=== PATIENT | male | born 1950 | race Caucasian/White ===

== ENCOUNTER → 2017-01-06 | Day surgery (SDC) | payer MEDICARE ==
[2017-01-02 09:50] VITALS: BMI 32.8
[~2017-01-06] MED LIST: ISOPROTERENOL 250 MCG/1.25 ML SYR IV ONE; LACTATED RINGERS 1,000 ML IV SCH; METOPROLOL TARTRATE 5 MG/5 ML VIAL IVP ONE; METOPROLOL TARTRATE 50 MG TAB PO STA; MIDAZOLAM 2 MG/2 ML VIAL ONE; SODIUM CHLORIDE 0.9% 1,000 ML IV SCH; fentaNYL (PF) 50 MCG/ML 2 ML AMP ONE
[2017-01-06 07:21] VITALS: RESP 18; TEMP 98
--- NOTE | 2017-01-06 10:08 | P.PCN ---
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 Delay detection was account of stability which correlates with his variation in cycle length. First burst of antitachycardia pacing successfully terminated VT Programming changes made 1. VT detection intervals reduced since he is presyncopal 2. VT rate reduced to 162 beats a minute 3. Antitachycardia pacing parameters changed 4. VF detection intervals reduced, since he is presyncopal 5. Stability criteria turned off since this was the reason for delay in detection Plan Increase metoprolol to total of 400 mg daily in divided doses May consider reducing lisinopril in the future if his blood pressure is low Postoperative Diagnosis: Procedure(s) Performed: Implants: Condition: stable Indications for Procedure: Operative Findings: Description of Procedure:
[2017-01-06 13:38] VITALS: BP 116/68; PULSE 92
== END ==
LOC: CATHEP 06:49
PROVIDERS: ATTEND Internal Medicine Clinical Cardiac Electrophysiology
DX: I42.8 Other cardiomyopathies (principal); Z45.02 Encounter for adjustment and management of automatic implantable cardiac defibrillator; I44.7 Left bundle-branch block, unspecified; I47.1 Supraventricular tachycardia; R55 Syncope and collapse; I10 Essential (primary) hypertension; E78.5 Hyperlipidemia, unspecified; J44.9 Chronic obstructive pulmonary disease, unspecified; Z87.891 Personal history of nicotine dependence; Z79.82 Long term (current) use of aspirin; Z79.51 Long term (current) use of inhaled steroids; Z79.899 Other long term (current) drug therapy
CPT/HCPCS: 93642; J2250; J3010

== ENCOUNTER 2017-01-24 10:11 | Day surgery (SDC) | payer MEDICARE ==
[2017-01-20 15:35] VITALS: BMI 32.1
[~2017-01-24 10:11] MED LIST changes: -ISOPROTERENOL 250 MCG/1.25 ML SYR IV ONE; -METOPROLOL TARTRATE 5 MG/5 ML VIAL IVP ONE; -METOPROLOL TARTRATE 50 MG TAB PO STA; -MIDAZOLAM 2 MG/2 ML VIAL ONE; -SODIUM CHLORIDE 0.9% 1,000 ML IV SCH; -fentaNYL (PF) 50 MCG/ML 2 ML AMP ONE
[2017-01-24] MEDS ORDERED: LIDOCAINE 1% 20 ML VIAL (10MG/ML) FOR IV START INTRADERMA ONE (10:25)
[2017-01-24 10:45] VITALS: RESP 16; TEMP 97
[2017-01-24] MEDS ORDERED: PROPOFOL 10 MG/ML 20 ML VIAL IV ONE (10:59)
[2017-01-24] MEDS ORDERED: GLYCOPYRROLATE 0.2 MG/ML 2 ML VIAL ONE (10:59)
[2017-01-24] MEDS ORDERED: LIDOCAINE 1% INJ 10MG/ML (20 ML MDV) ONE (10:59)
--- NOTE | 2017-01-24 12:14 | P.PCN ---
Date of Procedure: 01/24/17 Preoperative Diagnosis: Postoperative Diagnosis: Procedure(s) Performed: Procedure: Colonoscopy and polypectomy. Preoperative diagnosis: Blood in the stools. Postoperative diagnosis: 1. Distal sigmoid polyp snared but no large polyps or cancer. 2. Mild sigmoid diverticulosis with no evidence of acute diverticulitis , strictures or bleeding. 3. Low-grade internal hemorrhoids without bleeding at the time of this exam. Preparation: HalfLytely prep. Sedation: Was provided by anesthesia. Brief clinical history: The patient is a 66-year-old male with history of polyps and family history of colon cancer who I have seen in the office regarding finding of blood in his stools. The patient denied any abdominal symptoms or overt bleeding or any upper GI complaints. His last colonoscopy was around 4 years ago. Procedure: With the patient on his left lateral decubitus position and after informed consent and adequate sedation, the perianal area was inspected and it did not show any fissures or fistulas. There were no masses felt on digital rectal examination. The Olympus CFQ 160L video colonoscope was then inserted in the rectum and the usual fashion and advanced to the cecum. There was a 1- 1.5 cm polyp in the distal sigmoid which I snared and retrieved by suction in 2 pieces. In addition, there were few small scattered diverticular orifices seen in the sigmoid with no evidence of acute diverticulitis or strictures. Otherwise, the mucosa appeared healthy. No large polyps or tumors were seen or any evidence of bleeding. I retroflexed the endoscope in the rectum before the endoscope was withdrawn. Low-grade internal hemorrhoids were noted but there was no evidence of bleeding. The patient tolerated the procedure well. Plan: The patient was reassured. In the absence of upper GI complaints or anemia, I did not schedule an upper endoscopy at this time and this can be kept as a contingency, for further workup of his Hemoccult positive stools, based on his course. For further screening for neoplasia, I would recommend repeat colonoscopy in 5 years. He will follow up with you as planned. Implants: Indications for Procedure: Operative Findings: Description of Procedure:
[2017-01-24 14:12] VITALS: BP 124/78; PULSE 103
== END 2017-01-24 12:05 | disposition home or self-care (01) ==
LOC: ORWHC2ENDO 10:11
DX: D12.5 Benign neoplasm of sigmoid colon (principal); K57.30 Diverticulosis of large intestine without perforation or abscess without bleeding; K64.8 Other hemorrhoids; Z87.19 Personal history of other diseases of the digestive system; Z86.010 Personal history of colon polyps; Z80.0 Family history of malignant neoplasm of digestive organs; I48.91 Unspecified atrial fibrillation; I11.0 Hypertensive heart disease with heart failure; I50.9 Heart failure, unspecified; E78.5 Hyperlipidemia, unspecified; J44.9 Chronic obstructive pulmonary disease, unspecified; F32.9 Major depressive disorder, single episode, unspecified; Z95.810 Presence of automatic (implantable) cardiac defibrillator; Z79.899 Other long term (current) drug therapy; Z79.51 Long term (current) use of inhaled steroids; Z91.048 Other nonmedicinal substance allergy status
CPT/HCPCS: 88305; 45385; J2001; J2704

== ENCOUNTER 2017-12-04 09:45 | Day surgery (SDC) | payer MEDICARE ==
[2017-11-28 12:42] VITALS: BMI 33.6
[~2017-12-04 09:45] MED LIST changes: -LACTATED RINGERS 1,000 ML IV SCH; +LIDOCAINE 1% 20 ML VIAL (10MG/ML) FOR IV START INTRADERMA PRN; +MIDAZOLAM 2 MG/2 ML VIAL IV PRN; +ceFAZolin 1,000 MG in SODIUM CHLORIDE 0.9% IRRIGATIO 250 ML IRRIGATION ONE; +ceFAZolin IN SWFI 2 GM/20 ML SYRINGE IVP ONE
[2017-12-04] MEDS: SODIUM CHLORIDE 0.9% 1,000 ML IV SCH ×4 (10:35→22:24)
[2017-12-04] MEDS ORDERED: MIDAZOLAM 2 MG/2 ML VIAL ONE (12:22)
[2017-12-04] MEDS ORDERED: PROPOFOL 10 MG/ML 20 ML VIAL IV ONE (12:22)
[2017-12-04] MEDS ORDERED: fentaNYL (PF) 50 MCG/ML 2 ML AMP ONE (12:22)
[2017-12-04] MEDS ORDERED: LIDOCAINE 1% INJ 10MG/ML (20 ML MDV) ONE ×2 (12:45)
[2017-12-04] MEDS ORDERED: LIDOCAINE 1% INJ 10MG/ML (20 ML MDV) SQ ONE (13:05)
[2017-12-04] MEDS ORDERED: HYDROcodone/APAP 5-325MG 1 EACH TAB PO PRN (13:40)
[2017-12-04] MEDS ORDERED: ACETAMINOPHEN TAB 325 MG TAB PO PRN (13:40)
[2017-12-04] MEDS ORDERED: ACETAMINOPHEN IV (For NPO) 1,000 MG in EMPTY BAG 1 BAG IVPB ONE (13:40)
[2017-12-04] MEDS: LACTATED RINGERS 1,000 ML IV SCH (14:50)
--- NOTE | 2017-12-04 15:47 | CE ---
CARDIAC ELECTROPHYSIOLOGY REPORT Kj Mcdonald is a 66-year-old male patient who has nonischemic cardiomyopathy, normal coronary arteries, severe LV dysfunction ejection fraction less than 30 to 35%, status post Bi V ICD, history of ventricular tachycardia and fast ventricular tachycardia requiring ICD therapies and shocks on an antiarrhythmic drug therapy for suppression as well as paroxysmal atrial fibrillation on anticoagulation, congestive heart failure class 2-3, stable; LV systolic dysfunction, whose generator is at EDITH. He underwent a Bi V ICD generator change. Patient was brought to the EP lab in a fasting state. Written informed consent was obtained prior to the procedure. The left shoulder area was prepped and draped as per protocol. 1% lidocaine used for local anesthesia. A 4 cm incision was made directly over the previous surgical site and carried down to the level of the generator. The generator was explanted. Partial capsulectomy was performed. The old generator was removed. The new generator was implanted. Leads were interrogated and then the device was tested under anesthesia. The old generator was a Yunait model number D 314 DRG Protecta XT TELEPHONE CLAIMS REPRESENTATIVE. The new generator implanted was a Viva XT DF 1, model number [id number], serial number [id number]. DFT testing was performed. Shock and T-wave protocol was used to induce ventricular fibrillation. This was adequately and appropriately detected at least sensitivity with 1 dropout and successfully internally defibrillated with a 20 joule shock. Charge time 4.3 seconds. Shocking impedance 83 ohms. No post shock noise. The device was then programmed in two zones of therapy to VT and VF zones. VT zone 176 beats per minute. VF zone 214 beats per minute. Appropriate antitachycardia pacing cardioversion defibrillation programmed accordingly. Bi V pacing was programmed with LV RV offset of 20 milliseconds. Sync LV pacing was not accomplished on account of the interference with PVCs. MMODL / IJN: [id number] /
[2017-12-04] MEDS ORDERED: ATORVASTATIN 10 MG TAB PO SCH (17:30)
[2017-12-04] MEDS: ceFAZolin IN SWFI 2 GM/20 ML SYRINGE IVP SCH (18:23)
[2017-12-04] MEDS: MEXILETINE 150 MG CAP PO SCH ×2 (18:26→20:16)
[2017-12-04] MEDS: METOPROLOL TARTRATE 50 MG TAB PO SCH (20:16)
[2017-12-04] MEDS: LISINOPRIL 20 MG TAB PO SCH (20:16)
[2017-12-05] MEDS: ceFAZolin IN SWFI 2 GM/20 ML SYRINGE IVP SCH ×3 (01:01→12:00)
[2017-12-05 03:53] VITALS: RESP 18
[2017-12-05] MEDS: SODIUM CHLORIDE 0.9% 1,000 ML IV SCH ×3 (04:02→04:06)
[2017-12-05] MEDS: LACTATED RINGERS 1,000 ML IV SCH (04:06)
[2017-12-05] MEDS: MEXILETINE 150 MG CAP PO SCH (06:19)
[2017-12-05] MEDS: LISINOPRIL 20 MG TAB PO SCH (08:27)
[2017-12-05] MEDS: METOPROLOL TARTRATE 50 MG TAB PO SCH (08:27)
[2017-12-05] MEDS ORDERED: RIVAROXABAN 20 MG TAB PO SCH (09:00)
[2017-12-05 11:49] VITALS: BP 122/77; PULSE 69; TEMP 97.8
[2017-12-05] MEDS ORDERED: FUROSEMIDE 40 MG TAB PO SCH (12:00)
[2017-12-05] MEDS ORDERED: SPIRONOLACTONE 25 MG TAB PO SCH (12:00)
--- NOTE | 2017-12-05 20:20 | DS ---
DISCHARGE SUMMARY 66-year-old male patient who underwent a biventricular ICD generator change yesterday without any acute complications. He is doing well this morning. His ICD site is healed well. There is no hematoma. There is very minimal soakage. Breath sounds are clear. No rhonchi, no crackles. Heart sounds S1, S2 normal. No murmurs, no gallops. No rub. He has frequent PVCs. IMPRESSION: History of nonischemic cardiomyopathy with congestive heart failure status post Bi V ICD and improvement in LV systolic function with Bi V pacing. Baseline EF is 30-35%. Ejection fraction with Bi V pacing is improved to 45%. He is on appropriate drug therapy. He also has history of VT as well as VF requiring ICD shocks and therapies as well as paroxysmal atrial fibrillation and is on anticoagulation. PLAN: Plan is to discharge him today and follow up in the office in 5 days. No changes in medications. MMODL / IJN: [id number] /
== END 2017-12-05 12:54 | disposition home or self-care (01) ==
LOC: CATHEP 09:45 → 3OBS 15:40 → CATHEP 12-05 12:54
PROVIDERS: ATTEND Internal Medicine Clinical Cardiac Electrophysiology
DX: I42.9 Cardiomyopathy, unspecified (principal); I47.2 Ventricular tachycardia; I47.1 Supraventricular tachycardia; I48.0 Paroxysmal atrial fibrillation; I44.7 Left bundle-branch block, unspecified; I50.22 Chronic systolic (congestive) heart failure; I11.0 Hypertensive heart disease with heart failure; E78.5 Hyperlipidemia, unspecified; Z79.82 Long term (current) use of aspirin; Z79.01 Long term (current) use of anticoagulants; Z87.891 Personal history of nicotine dependence; Z79.899 Other long term (current) drug therapy
CPT/HCPCS: 93641; 33264; C1882; J2250; J0690 ×3; J2001; J3010; J0131; J2704

== ENCOUNTER → 2018-08-22 | Outpatient (CLI) | payer MEDICARE ==
[2018-08-22 08:51] LABS: HCT 46.3 % (39.0-53.0); HGB 15.7 gm/dL (13.0-17.5); MCHC 33.9 g/dL (31.0-37.0); MCV 91.4 fL (80.0-100.0); Mean Platelet Volume 7.5; Platelet Count 243 k/uL (150-450); RBC 5.06 m/uL (4.30-5.90); WBC 6.7 k/uL (3.8-10.6)
[2018-08-22 09:13] LABS: Potassium 5.3 mmol/L (3.5-5.1)
== END ==
LOC: LABPAT 07:47
PROVIDERS: ATTEND Internal Medicine Clinical Cardiac Electrophysiology
DX: Z01.812 Encounter for preprocedural laboratory examination (principal); I48.1 Persistent atrial fibrillation
CPT/HCPCS: 36415; 80051; 82565; 82947; 84520; 85027

== ENCOUNTER 2018-08-31 23:22 | Inpatient (IN) | payer MEDICARE ==
[2018-08-31] MEDS ORDERED: SODIUM CHLORIDE 0.9% 1,000 ML IV STA (23:37)
[2018-08-31] MEDS ORDERED: METOPROLOL TARTRATE 5 MG/5 ML VIAL IVP STA (23:37)
[2018-08-31] MEDS ORDERED: NITROGLYCERIN SL TABS 0.4 MG TAB SUBLINGUAL PRN (23:41)
--- NOTE | 2018-08-31 23:48 | ED ---
Chest Pain HPI - General Chief Complaint: Chest Pain Stated Complaint: Chest Pain Time Seen by Provider: 08/31/18 23:33 Source: patient, family, RN notes reviewed Mode of arrival: wheelchair Limitations: no limitations - History of Present Illness Initial Comments: This is a 67-year-old male to the ER for evaluation of shortness of breath and chest pain. Patient has history of heart disease has a pacemaker and defibrillator, patient states he has been elevated. Patient has severe chest pain heaviness on his chest. He is schefuled for ablation this week MD Complaint: chest pain, other (sob) -: hour(s) Onset: during rest Pain Location: substernal, left chest Pain Radiation: LUE Severity: moderate Severity scale (1-10): 6 Quality: tightness, heaviness Consistency: constant Improves With: nothing Worsens With: nothing Anginal Symptoms: diaphoresis, dyspnea Other Symptoms: palpitations Treatments Prior to Arrival: none - Related Data Home Medications Medication Instructions Recorded Confirmed Furosemide 40 mg PO DAILY@1200 03/17/14 09/01/18 Lisinopril 20 mg PO DAILY 03/17/14 09/01/18 Lovastatin 20 mg PO AC-SUPPER 03/17/14 09/01/18 Spironolactone 25 mg PO DAILY@1200 03/17/14 09/01/18 Cholecalciferol [Vitamin D3] 1,000 unit PO TID 02/17/16 09/01/18 Mexiletine [Mexitil] 150 mg PO TID@0630,1430,2200 02/17/16 09/01/18 buPROPion HCL [Wellbutrin XL] 300 mg PO DAILY@0900 02/17/16 09/01/18 clonazePAM [Clonazepam] 0.5 mg PO BID@0900,2100 02/17/16 09/01/18 Rivaroxaban [Xarelto] 20 mg PO DAILY 11/28/17 09/01/18 Albuterol Sulfate [Proair Hfa] 90 mcg INHALATION QID PRN 09/01/18 09/01/18 Budesonide-Formot 160-4.5 Mcg 2 puff INHALATION BID 09/01/18 09/01/18 [Symbicort 160-4.5 Mcg Inhaler] Metoprolol Succinate [Toprol Xl] 100 mg PO BID 09/01/18 09/01/18 metroNIDAZOLE 0.75% CREAM 0.758 applic TOPICAL BID 09/01/18 09/01/18 [Metrocream] Previous Rx's Medication Instructions Recorded Metoprolol Tartrate [Lopressor] 200 mg PO BID #0 01/06/17 Allergies Allergy/AdvReac Type Severity Reaction Status Date / Time adhesive Allergy Rash/Hives Verified 08/31/18 23:28 Review of Systems ROS Statement: Those systems with pertinent positive or pertinent negative responses have been documented in the HPI. ROS Other: All systems not noted in ROS Statement are negative. EKG Findings - EKG Comments: EKG Findings:: EKG shows paced rhythm rate of 89, QRS 152, QTc 515 Past Medical History Past Medical History: Atrial Fibrillation, Chest Pain / Angina, Heart Failure, Hyperlipidemia, Hypertension, Respiratory Disorder Additional Past Medical History / Comment(s): EMPHYSEMA. SEE DR TONG'S H&P History of Any Multi-Drug Resistant Organisms: None Reported Past Surgical History: AICD, Cardiac Ablation, Tonsillectomy Additional Past Surgical History / Comment(s): Cardiac Ablation x 3; Fx wrist repair; colonoscopy Past Anesthesia/Blood Transfusion Reactions: No Reported Reaction Type of Cardiac Device: AICD Device Placement Date:: 06/18/2012 Past Psychological History: Anxiety Smoking Status: Unknown if ever smoked Past Alcohol Use History: None Reported Past Drug Use History: None Reported - Past Family History Father Family Medical History: Cancer Additional Family Medical History / Comment(s): Colon CA Mother Family Medical History: Cancer Additional Family Medical History / Comment(s): Colon CA General Exam Limitations: no limitations General appearance: alert, in no apparent distress, anxious Head exam: Present: atraumatic, normocephalic, normal inspection Eye exam: Present: normal appearance, PERRL, EOMI. Absent: scleral icterus, conjunctival injection, periorbital swelling ENT exam: Present: normal exam, mucous membranes moist Neck exam: Present: normal inspection. Absent: tenderness, meningismus, lymphadenopathy Respiratory exam: Present: respiratory distress, accessory muscle use, decreased breath sounds, prolonged expiratory. Absent: wheezes, rales, rhonchi, stridor Cardiovascular Exam: Present: tachycardia, irregular rhythm, normal heart sounds. Absent: systolic murmur, diastolic murmur, rubs, gallop, clicks GI/Abdominal exam: Present: soft, normal bowel sounds. Absent: distended, tenderness, guarding, rebound, rigid Extremities exam: Present: normal inspection, full ROM, normal capillary refill. Absent: tenderness, pedal edema, joint swelling, calf tenderness Back exam: Present: normal inspection Neurological exam: Present: alert, oriented X3, CN II-XII intact Psychiatric exam: Present: normal affect, normal mood Skin exam: Present: warm, dry, intact, normal color. Absent: rash Course Vital Signs 08/31/18 08/31/18 23:26 23:50 Temperature 97.6 F Pulse Rate 108 H 125 H Respiratory 20 22 Rate Blood Pressure 108/83 119/88 O2 Sat by Pulse 95 97 Oximetry - Reevaluation(s) Reevaluation #1: 08/31/18 23:45 medical record is reviewed Reevaluation #2: 08/31/18 23:45 metoprolol improves heart rate Chest Pain MDM - MDM 67 male to the ED w chest pain, in afib rvr w paced rhythm, EKG difficult to assess secondary to above, patient is anticoagulated, will admit for cardiolog evaluation and treatment, telemetry, monitoring of cardiopulmonary status Critical Care Time Critical Care Time: Yes Total Critical Care Time: 31 Disposition Clinical Impression: Unstable angina, Chest pain, Atrial fibrillation with RVR Disposition: ADMITTED IP TO THIS HOSP Condition: Fair Is patient prescribed a controlled substance at d/c from ED?: No Referrals: Alvin Redd MD [Primary Care Provider] - 1-2 days
[2018-09-01 00:01] LABS: Basophils # (A) 0.1 k/uL (0-0.2); Basophils % (A) 1 %; Eosinophils # (A) 0.4 k/uL (0-0.7); Eosinophils % (A) 5 %; HCT 47.8 % (39.0-53.0); HGB 15.7 gm/dL (13.0-17.5); Lymphocytes # (A) 2.1 k/uL (1.0-4.8); Lymphocytes % (A) 27 %; MCH 30.4 pg (25.0-35.0); MCHC 32.8 g/dL (31.0-37.0); MCV 92.6 fL (80.0-100.0); Mean Platelet Volume 7.3; Monocytes # (A) 0.5 k/uL (0-1.0); Monocytes % (A) 6 %; Neutrophils # (A) 4.4 k/uL (1.3-7.7); Neutrophils % (A) 58 %; Platelet Count 229 k/uL (150-450); RBC 5.16 m/uL (4.30-5.90); RDW 12.9 % (11.5-15.5); WBC 7.6 k/uL (3.8-10.6)
[2018-09-01 00:07] LABS: INR 1.3 (<1.2); Partial Thromboplastin Time 30.7 sec (22.0-30.0)
[2018-09-01 00:13] LABS: ALT 41 U/L (21-72); AST 31 U/L (17-59); Albumin 4.2 g/dL (3.5-5.0); Alkaline Phosphatase 92 U/L (38-126); Anion Gap 11 mmol/L; Blood Urea Nitrogen 17 mg/dL (9-20); Calcium 9.5 mg/dL (8.4-10.2); Carbon Dioxide 23 mmol/L (22-30); Chloride 105 mmol/L (98-107); Glucose 164 mg/dL (74-99); Magnesium 2.1 mg/dL (1.6-2.3); Potassium 4.3 mmol/L (3.5-5.1); Sodium 139 mmol/L (137-145); Total Bilirubin 0.3 mg/dL (0.2-1.3); Total Protein 6.7 g/dL (6.3-8.2)
--- NOTE | 2018-09-01 00:17 | XR ---
EXAM: XR Chest, 2 Views CLINICAL HISTORY: ITS.REASON XR Reason: Chest Pain TECHNIQUE: Frontal and lateral views of the chest. COMPARISON: Chest radiographs 07/18/2016. FINDINGS: Lungs: Unremarkable. No consolidation. Pleural space: Unremarkable. No pneumothorax. Heart: Cardiomegaly. Mediastinum: Unremarkable. Bones/joints: Degenerative changes seen throughout the thoracic spine. Tubes, lines and devices: Cardiac pacing device. IMPRESSION: No acute cardiopulmonary abnormality.
[2018-09-01] MEDS ORDERED: METOPROLOL TARTRATE 5 MG/5 ML VIAL IVP STA (00:43)
[2018-09-01] MEDS ORDERED: MORPHINE SULFATE 4 MG/ML SYRINGE IVP PRN (01:00)
[2018-09-01 01:21] VITALS: BMI 34.4
[2018-09-01 05:14] VITALS: RESP 18
[2018-09-01] MEDS ORDERED: METOPROLOL TARTRATE 50 MG TAB PO SCH ×3 (06:00→09:00)
[2018-09-01 06:55] LABS: Cholesterol 129 mg/dL (<200); HDL Cholesterol 34 mg/dL (40-60); LDL Cholesterol,Calculated 78 mg/dL (0-99); Triglycerides 84 mg/dL (<150)
[2018-09-01] MEDS ORDERED: ASPIRIN 325 MG TAB PO SCH (09:00)
[2018-09-01] MEDS ORDERED: METOPROLOL SUCCINATE (ER) 100 MG TAB.ER.24H PO SCH ×3 (09:00→21:00)
[2018-09-01] MEDS ORDERED: RIVAROXABAN 20 MG TAB PO SCH (09:30)
--- NOTE | 2018-09-01 09:30 | CONS ---
CONSULTATION CHIEF COMPLAINT: Chest pain. HISTORY OF PRESENT ILLNESS: Mr. Mcdonald is a 67-year-old gentleman with history of nonischemic cardiomyopathy, paroxysmal atrial fibrillation, congestive heart failure status post Bi V AICD, who presented to hospital complaining of chest pain. He describes as a sharp precordial pain, mild intensity, came on at rest, unrelated to exertion and associated with diaphoresis without definite radiation to neck, arm or back. He is admitted with these symptoms. His chest pain he stated got worse when he took a deep breath in and subsequently he became pain free. At the time of my evaluation this morning, he is chest pain-free, hemodynamically stable and is ambulating without any problems. The patient is on Xarelto because of paroxysmal atrial fibrillation. PAST MEDICAL HISTORY: Significant for nonischemic cardiomyopathy, AICD, paroxysmal atrial fibrillation. MEDICATIONS: At home included Toprol-XL 200 daily, ProAir, Symbicort, clonazepam, Wellbutrin, spironolactone, Xarelto, mexiletine, lovastatin, lisinopril, Lasix. ALLERGIES: ADHESIVE TAPE. FAMILY HISTORY: Negative for premature coronary artery disease. SOCIAL HISTORY: Negative for smoking, EtOH abuse, or drug abuse. REVIEW OF SYSTEMS: HEENT is unremarkable. Cardiac as described above. Respiratory negative. GI negative. Genitourinary: Negative. Allergy none. Skin negative. Musculoskeletal negative. Endocrine negative. DERM: Negative. Constitutional negative. Oncological negative. Rest of the system review is not relevant. EXAM: Patient is comfortable at rest. Vital signs are stable. There is no jugular venous distention. Carotid upstroke is normal. There is no bruit. Chest exam reveals diminished air entry at the bases. I do not hear any crackles or rhonchi. Heart exam reveals first and second heart sounds. No gallop. No murmur. No rub. Abdomen is soft, nontender. Exam of extremities did not reveal any edema. Peripheral pulses are felt. CARPET JOURNEYMAN exam did not reveal focal neurological deficits. LABS: Show a hemoglobin of 15.7, platelet count is 229. Potassium is 4.3, creatinine is 0.9. LDL cholesterol is 78. Two sets of troponins are negative. EKG shows atrial fibrillation with nonspecific ST-T wave changes. Chest x-ray is unremarkable. ASSESSMENT: 1. Precordial chest pain. 2. Nonischemic cardiomyopathy status post Bi V AICD. 3. Paroxysmal atrial fibrillation. 4. Hypertension. 5. Dyslipidemia. PLAN: Patient is stable. The patient is chest pain-free. His chest discomfort sounds sharp atypical. He states that he had a negative stress test within the last several months and has had prior angiograms that are negative. I do not have any of these records. Myocardial infarction is ruled out. There is no concern for pulmonary embolism. The patient is already adequately anticoagulated. We will ambulate him, see how he does. If he is doing well, he can go home. The patient is actually awaiting an atrial fibrillation ablation by Dr. See scheduled on and we will probably keep the appointment. MMODL / IJN: [id number] /
--- NOTE | 2018-09-01 13:14 | ECHOF ---
Referral Reason:afib MEASUREMENTS -------- HEIGHT: 182.9 cm WEIGHT: 107.0 kg BP: IVSd: 1.4 cm (0.6 - 1.1) LVIDd: 4.5 cm (3.9 - 5.3) LVPWd: 1.6 cm (0.6 - 1.1) IVSs: 1.8 cm LVIDs: 3.2 cm LVPWs: 2.2 cm Ao Diam: 3.5 cm (2.0 - 3.7) AV Cusp: 2.6 cm (1.5 - 2.6) LA Diam: 4.1 cm (2.7 - 3.8) RAP: 5.00 mmHg RVSP: 10.33 mmHg FINDINGS -------- Atrial fibrillation. This was a technically difficult study with suboptimal views. The left ventricular size is normal. There is moderate concentric left ventricular hypertrophy. O verall left ventricular systolic function is moderately impaired with, an EF between 35 - 40 %. The right ventricle is normal in size. The left atrium is mildly dilated. The right atrial size is normal. 5.0mg of Lumason was utilized for enhancement of images The aortic valve is trileaflet and appears structurally normal. There is trace mitral regurgitation. Trace tricuspid regurgitation present. The right ventricular systolic pressure, as measured by Dopp ler, is 10.33mmHg. There is no pulmonic regurgitation present. The aortic root size is normal. IVC Not well visulized. There is no pericardial effusion. CONCLUSIONS -------- 1. Atrial fibrillation. 2. This was a technically difficult study with suboptimal views. 3. The left ventricular size is normal. 4. There is moderate concentric left ventricular hypertrophy. 5. The right ventricle is normal in size. 6. The left atrium is mildly dilated. 7. The right atrial size is normal. 8. 5.0mg of Lumason was utilized for enhancement of images 9. The aortic valve is trileaflet and appears structurally normal. 10. There is trace mitral regurgitation. 11. Trace tricuspid regurgitation present. 12. The right ventricular systolic pressure, as measured by Doppler, is 10.33mmHg. 13. There is no pulmonic regurgitation present. 14. The aortic root size is normal. 15. IVC Not well visulized. 16. There is no pericardial effusion. DOWEL INSERTING MACHINE OPERATOR: Mecca Farmer RDCS
[2018-09-01] MEDS ORDERED: MEXILETINE 150 MG CAP PO SCH (14:30)
[2018-09-01 15:27] VITALS: BP 111/72; PULSE 71; TEMP 98.1
--- NOTE | 2018-09-01 19:58 | DS ---
DISCHARGE SUMMARY HISTORY PHYSICAL AND DISCHARGE SUMMARY: DATE OF ADMISSION: 08/31/2018 DATE OF DISCHARGE: 09/01/2018 PRESENTING COMPLAINT: Chest pain. HISTORY OF PRESENTING COMPLAINT: This is a very pleasant 67 -year-old patient of Dr. Ramsay, follows with Cardiology, Dr. See. Chronic stable medical conditions include atrial fibrillation, congestive heart failure, hypertension, hyperlipidemia, emphysema, has an AICD. Yesterday developed pressure across the upper chest, lasted for 1 hour. Did not radiate to the neck or arm. There was no shortness of breath. No dizziness. No lightheadedness. Though did break out in a sweat. Symptoms then subsided. The patient admitted for the same. Patient is pending an ablation by Dr. See in the next 4 days. The patient was seen by Dr. Ramos from Cardiology who had the patient up and walk up and down the hallway a few times. He did that without any reproduction of symptoms. Per his notes, patient has had a stress test in the past that was negative. The patient is currently feeling rather comfortable, very keen to go home. REVIEW OF SYSTEMS: CONSTITUTIONAL: None. HEENT: None. RESPIRATORY: None. CARDIOVASCULAR: As above. GASTROINTESTINAL: None. GENITOURINARY: None. MUSCULOSKELETAL: None. DERMATOLOGICAL: None. HEMATOLOGY: None. LYMPHATICS: none. PSYCHIATRY none. NEUROLOGICAL: None. PAST MEDICAL HISTORY: Of atrial fibrillation, congestive heart failure, EF not known, hyperlipidemia, hypertension, emphysema. PAST SURGICAL HISTORY: AICD, tonsillectomy, cardiac ablation x3, fractured wrist repair, AICD in 2013. PSYCH HISTORY: Anxiety. SOCIAL HISTORY: Smoked a pack a day for close to 40 years, stopped in 1997, . FAMILY HISTORY: Colon cancer. HOME MEDICATIONS: 1. Metro cream topical b.i.d. 2. Clonazepam 0.5 mg p.o. b.i.d. 3. Wellbutrin XL 300 mg p.o. daily. 4. Aldactone 25 mg p.o. daily. 5. Xarelto 20 mg p.o. daily. 6. Mexiletine 150 mg p.o. t.i.d. 7. Toprol-XL 100 mg b.i.d., 200 mg p.o. daily. 8. Lovastatin 20 mg with supper. 9. Lisinopril 20 mg p.o. daily. 10.Lasix 40 mg p.o. daily. 11.Vitamin D3 1000 units p.o. t.i.d. 12.Symbicort 160/4.5, 2 puffs b.i.d. 13.ProAir 90 mcg q.i.d. p.r.n. ALLERGIES: ADHESIVE TAPE. PHYSICAL EXAMINATION: VITAL SIGNS: Temperature 98.1, pulse 71, respiratory 18, blood pressure 101/72, pulse ox 96% on room air. GENERAL APPEARANCE: Average built, , sitting up comfortable. EYES: Pupils equal. Conjunctivae normal. HEENT: External appearance of nose and ears normal. Oral cavity normal. NECK: JVD not raised. Mass not palpable. RESPIRATORY: Effort normal. LUNGS: Diminished breath sounds. CARDIOVASCULAR: Heart sounds irregular. No edema. ABDOMEN: Soft, nontender. Liver and spleen not palpable. LYMPHATICS: No lymph nodes palpable in the neck and axilla. PSYCHIATRY: Alert and oriented times three. Mood and affect normal. NEUROLOGICAL: Pupils equal. Cranial nerves grossly intact. Power and sensation grossly intact. INVESTIGATIONS: White count 6.6, hemoglobin 15.7, platelets 229, potassium 4.3. BUN and creatinine is normal. Troponin times three negative. LDL 78. EKG tracing personally reviewed by me shows paced rhythm. Chest x-ray film personally reviewed by me shows cardiomegaly, prominent pulmonary artery. No obvious infiltrate. ASSESSMENT: 1. Anterior chest wall pain. Seen by Cardiology. Okay to go home. Per Dr. Ramos, the patient has had a stress test in the recent past. The patient is due for ablation. 2. Persistent atrial fibrillation with a AICD in place. 3. Chronic congestive heart failure, EF not known. 4. Essential hypertension. 5. Hyperlipidemia. 6. Emphysema in an ex-smoker. 7. AICD. PLAN: The patient is seen by Dr. Janina Ramos from Cardiology who okayed the patient to go home. Home medications will be continued. Patient due to see Dr. See for ablation this coming . Care was discussed with the patient and . He has been up and about in the hallway with no reproduction of the symptoms. Copy to Dr. Alvin Redd. MMMATILDEL / IJN: [id number] /
== END 2018-09-01 17:52 | disposition home or self-care (01) | DRG 313 ==
LOC: EC 23:22 → 3SCARD 23:41
PROVIDERS: ADMIT Hospitalist; ATTEND Hospitalist
DX: R07.89 Other chest pain (principal); I42.9 Cardiomyopathy, unspecified; I50.9 Heart failure, unspecified; I11.0 Hypertensive heart disease with heart failure; J43.9 Emphysema, unspecified; I48.0 Paroxysmal atrial fibrillation; E78.5 Hyperlipidemia, unspecified; F41.9 Anxiety disorder, unspecified; Z79.01 Long term (current) use of anticoagulants; Z79.899 Other long term (current) drug therapy; Z79.51 Long term (current) use of inhaled steroids; Z87.891 Personal history of nicotine dependence; Z95.810 Presence of automatic (implantable) cardiac defibrillator; Z91.048 Other nonmedicinal substance allergy status; Z80.0 Family history of malignant neoplasm of digestive organs
CPT/HCPCS: 36415; 71046; 80053; 80061; 83735; 83880; 84100; 84484; 85025; 85610; 85730; 93005; 93306; 94760; 96361; 96374; 96376; 99291

== ENCOUNTER → 2018-09-06 | Day surgery (SDC) | payer MEDICARE ==
[2018-09-05 08:35] VITALS: BMI 33.0
[~2018-09-06] MED LIST changes: -LIDOCAINE 1% 20 ML VIAL (10MG/ML) FOR IV START INTRADERMA PRN; -MIDAZOLAM 2 MG/2 ML VIAL IV PRN; +SODIUM CHLORIDE 0.9% 1,000 ML IV SCH; -ceFAZolin 1,000 MG in SODIUM CHLORIDE 0.9% IRRIGATIO 250 ML IRRIGATION ONE; -ceFAZolin IN SWFI 2 GM/20 ML SYRINGE IVP ONE
== END ==
LOC: CATHEP 06:20
PROVIDERS: ATTEND Internal Medicine Clinical Cardiac Electrophysiology
DX: Z53.9 Procedure and treatment not carried out, unspecified reason (principal)

== ENCOUNTER → 2018-09-10 | Day surgery (SDC) | payer MEDICARE ==
[2018-09-06 15:33] VITALS: BMI 33.0
[~2018-09-10] MED LIST changes: +LACTATED RINGERS 1,000 ML IV SCH
[2018-09-10 15:16] VITALS: BP 155/94; PULSE 123; RESP 18; TEMP 96.2
== END ==
LOC: CATHEP 14:19
PROVIDERS: ATTEND Internal Medicine Clinical Cardiac Electrophysiology
DX: I48.91 Unspecified atrial fibrillation (principal); Z53.9 Procedure and treatment not carried out, unspecified reason

== ENCOUNTER → 2018-10-03 | Outpatient (CLI) | payer MEDICARE ==
[2018-10-03 09:08] LABS: HCT 50.7 % (39.0-53.0); MCH 29.2 pg (25.0-35.0); MCHC 31.6 g/dL (31.0-37.0); MCV 92.4 fL (80.0-100.0); Mean Platelet Volume 7.9; Platelet Count 220 k/uL (150-450); RBC 5.48 m/uL (4.30-5.90); RDW 13.7 % (11.5-15.5); WBC 6.2 k/uL (3.8-10.6)
[2018-10-03 09:23] LABS: Potassium 5.5 mmol/L (3.5-5.1)
== END | disposition home or self-care (01) ==
LOC: LABPAT 08:06
PROVIDERS: ATTEND Internal Medicine Clinical Cardiac Electrophysiology
DX: Z01.812 Encounter for preprocedural laboratory examination (principal); I48.1 Persistent atrial fibrillation; I42.8 Other cardiomyopathies
CPT/HCPCS: 80051; 82565; 82947; 84520; 85027

== ENCOUNTER 2018-10-15 11:03 | Day surgery (SDC) | payer MEDICARE ==
[2018-10-11 13:56] VITALS: BMI 32.1
[~2018-10-15 11:03] MED LIST changes: -LACTATED RINGERS 1,000 ML IV SCH; +LIDOCAINE 1% 20 ML VIAL (10MG/ML) FOR IV START INTRADERMA PRN; +MIDAZOLAM 2 MG/2 ML VIAL IV PRN; -SODIUM CHLORIDE 0.9% 1,000 ML IV SCH; +fentaNYL (PF) 50 MCG/ML 2 ML AMP IV PRN
[2018-10-15] MEDS ORDERED: ceFAZolin IN SWFI 2 GM/20 ML SYRINGE IVP STA (11:48)
[2018-10-15] MEDS ORDERED: fentaNYL (PF) 50 MCG/ML 2 ML AMP ONE (12:34)
[2018-10-15] MEDS ORDERED: SUCCINYLCHOLINE CHLORIDE 100 MG/5 ML SYR IV ONE (12:34)
[2018-10-15] MEDS ORDERED: PHENYLEPHRINE-0.9% NACL SYG 1 MG/10 ML SYRINGE ONE (12:34)
[2018-10-15] MEDS ORDERED: GLYCOPYRROLATE 0.2 MG/ML 2 ML VIAL ONE (12:34)
[2018-10-15] MEDS ORDERED: FUROSEMIDE 10 MG/ML 2 ML VIAL ONE (12:34)
[2018-10-15] MEDS ORDERED: ePHEDrine SULFATE/0.9% NACL/PF 50 MG/5 ML SYRINGE IV ONE (12:34)
[2018-10-15] MEDS ORDERED: PROPOFOL 10 MG/ML 20 ML VIAL IV ONE (12:34)
[2018-10-15] MEDS ORDERED: SODIUM CHLORIDE 0.9% 1,000 ML IV ONE ×3 (12:34→16:46)
[2018-10-15] MEDS ORDERED: LIDOCAINE 1% INJ 10MG/ML (20 ML MDV) ONE ×2 (12:34→13:15)
[2018-10-15] MEDS ORDERED: PROTAMINE SULFATE 10 MG/ML 5 ML VIAL IV ONE (12:34)
[2018-10-15] MEDS ORDERED: MIDAZOLAM 2 MG/2 ML VIAL ONE (12:34)
[2018-10-15] MEDS ORDERED: ROCURONIUM BROMIDE 10 MG/ML 10 ML VIAL IV ONE (12:34)
[2018-10-15] MEDS ORDERED: NEOSTIGMINE 1 MG/ML 10 ML VIAL ONE (12:34)
[2018-10-15] MEDS ORDERED: HEPARIN SODIUM,PORCINE 10,000 UNIT/ML 1 ML VIAL ONE (12:34)
[2018-10-15] MEDS ORDERED: HEPARIN SOD,PORK IN 0.45% NACL 25,000 UNIT in 0.45% NACL 1 250ML.BAG IV ONE ×2 (13:30)
[2018-10-15] MEDS ORDERED: LIDOCAINE 1% INJ 10MG/ML (20 ML MDV) SQ ONE (13:32)
[2018-10-15] MEDS ORDERED: HEPARIN SODIUM (1,000 UNIT/ML) 1,000 UNIT in SODIUM CHLORIDE 0.9% 1,000 ML IRRIGATION ONE (15:19)
[2018-10-15] MEDS ORDERED: IOPAMIDOL-370 100ML BTL INJ ONE (16:11)
[2018-10-15] MEDS ORDERED: ACETAMINOPHEN TAB 325 MG TAB PO PRN (17:40)
[2018-10-15] MEDS ORDERED: HYDROcodone/APAP 5-325MG 1 EACH TAB PO PRN (17:40)
[2018-10-15] MEDS ORDERED: ALBUTEROL NEBULIZED 2.5 MG/3 ML INHALATION PRN (17:42)
[2018-10-15] MEDS ORDERED: ACETAMINOPHEN IV (For NPO) 1,000 MG in EMPTY BAG 1 BAG IVPB ONE (18:00)
--- NOTE | 2018-10-15 18:01 | P.PCN ---
Preoperative Diagnosis: Diagnosis Atrial fibrillation, symptomatic, refractory to therapy, paroxysmal reaching the VT detection zone Nonischemic cardiomyopathy status post biventricular ICD Result Successful pulmonary vein isolation of all veins using cryo-ablation Complete entrance block in all 4 veins confirmed No evidence for phrenic nerve injury Esophageal deflection YES , left-sided esophagus Procedure details Patient was brought to the EP lab in a fasting state. Written informed consent was obtained prior to the procedure. Procedure performed under general anesthesia After initial muscle relaxant use, muscle relaxants were not given thereafter in order to assess phrenic nerve during procedure. Patient prepped and draped as per protocol Full cryo-set up with standard preparation of the cryoablation tools done. Femoral Venous access obtained on the right and left groins Venous and arterial Sheaths placed. Diagnostic catheters for the high right atrium, phrenic nerve stimulation and pacing, His bundle, RV and coronary sinus placed Intracardiac echo catheter placed. Long sheath placed in the right atrium Left and right transseptal catheterization performed under intracardiac echo guidance. Intravenous heparin with aCT above 300 Later, catheter positioning and balloon positioning in the left atrium, under intracardiac echo guidance Diagnostic EP study with Drug infusion Coronary sinus pacing and recording Baseline measurements Atrial pacing performed from the high right atrium and the coronary sinus RV pacing Sinus cycle length 795 ms, paced, pace MO interval 200 ms, QRS 133 ms Bi V Underlying left bundle branch block once the device was interrogated and reprogrammed for the procedure AH interval 65 ms, HV interval 44 ms Burst stimulation from 4 ms down to 250 ms no atrial fibrillation induced at the end of the procedure Atrial extra stimulation from the left atrium/left atrial appendage after the procedure, 600/240 ms no atrial fibrillation on her off Isuprel High dose Isuprel postprocedure. No atrial tachycardia no atrial fibrillation Transseptal catheterization performed RA pressure 15/6/10 LA pressure 37/1/18 Transseptal catheterization performed with standard sheath. The cryoablation sheath was then placed with an over the wire exchange without any acute complications. All 4 pulmonary veins were isolated in the following sequence: Left superior followed by left inferior followed by right superior followed by right inferior The cryo-ablation balloon was placed at the os of each vein 1.5 mL of IV dye was injected to confirm an occluded vein Goal during cryoablation was to achieve complete occlusion of the pulmonary vein, achieve -30 degrees C at 30 seconds and achieve -40 degrees C at 60 seconds and a time to effect of less than 60-90 seconds, . If not the balloon was repositioned to obtain this result After completion of Cryoblation with durations from 180-240 seconds, entrance block was confirmed with the Attain circular catheter in a roving fashion around the antrum of the pulmonary veins Phrenic nerve pacing was performed from the SVC, right innominate vein area and diaphragm voltage was monitored. Diaphragmatic contractions were also monitored manually for strength of contraction. Parameter goals for each cryo freeze Complete occlusion of the appropriate vein -30 degrees C by 30 seconds -40 degrees C by 60 seconds Minimum between minus 40-55 degrees C Thaw time greater than 10 seconds Balloon visualized by intracardiac echo The esophagus was intubated. Esophageal Temperature monitoring with a CIRCA catheter formed. Esophageal deflection for hypothermia of the esophagus below 30 degrees C Left superior pulmonary vein Complete isolation, entrance block Left inferior pulmonary vein Complete isolation, entrance block Right superior pulmonary vein, during phrenic nerve pacing Complete isolation, entrance block Right inferior pulmonary vein, during phrenic nerve pacing Complete isolation, entrance block At the end of the procedure the Achieve catheter was once again used to check for entrance block Phrenic nerve stimulation was performed to confirm diaphragmatic stimulation the end of the procedure Cine fluoroscopy was performed at the very end of the procedure to confirm movement of both diaphragms with inspiration and expiration At the end of the procedure the patient was extubated Heparin was reversed Venous sheaths were removed and hemostasis assured Procedures performed (PVI - CRYO Ablation) Invasive hemodynamic monitoring while general anesthesia, right femoral arterial line for monitoring and sampling Diagnostic EP study CS pacing and recording Left and right transseptal catheterization Catheter the mapping of the 3D mapping) Intracardiac echocardiography Pulmonary vein isolation with transseptal and comprehensive EPS, [id number] 3-D mapping of the left atrium Left atrial roof line, +[id number] 3-D mapping of the left atrial roof line Left atrial, septal line from the roof down to the right inferior pulmonary vein, +[id number] Drug Infusion +[id number] [facility] ICD interrogation with reprogramming before and after the procedure The for the procedure rate-responsive this turned off atrial therapies turned off AV delay prolonged VT and VF detections turned off At the end of the procedure the device was interrogated Rate-responsive this turned on, DDDR 60 to 1:30 bpm AV delay shortened to 1:30 milliseconds Atrial therapies turned on VT and VF detections turned on
[2018-10-15] MEDS: SODIUM CHLORIDE 0.9% 1,000 ML IV SCH (19:38)
[2018-10-15] MEDS: LACTATED RINGERS 1,000 ML IV SCH (19:38)
[2018-10-15] MEDS ORDERED: RIVAROXABAN 20 MG TAB PO SCH (20:30)
[2018-10-15] MEDS ORDERED: ATORVASTATIN 10 MG TAB PO SCH (20:53)
[2018-10-15] MEDS ORDERED: SPIRONOLACTONE 25 MG TAB PO SCH (21:00)
[2018-10-15] MEDS: SYMBICORT 160-4.5 MCG INHALER INHALATION SCH (21:16)
[2018-10-15] MEDS: clonazePAM 0.5 MG TAB PO SCH (21:25)
[2018-10-15] MEDS: METOPROLOL SUCCINATE (ER) 100 MG TAB.ER.24H PO SCH (21:25)
[2018-10-15] MEDS: MEXILETINE 150 MG CAP PO SCH (21:25)
[2018-10-16] MEDS: SODIUM CHLORIDE 0.9% 1,000 ML IV SCH (03:33)
[2018-10-16] MEDS: clonazePAM 0.5 MG TAB PO SCH (08:36)
[2018-10-16] MEDS: MEXILETINE 150 MG CAP PO SCH (08:37)
[2018-10-16] MEDS ORDERED: METOPROLOL SUCCINATE (ER) 100 MG TAB.ER.24H PO SCH (09:00)
[2018-10-16] MEDS ORDERED: buPROPion SR 100 MG TABLET.ER PO SCH (09:00)
[2018-10-16] MEDS ORDERED: LISINOPRIL 20 MG TAB PO SCH (09:00)
[2018-10-16] MEDS ORDERED: FUROSEMIDE 40 MG TAB PO SCH (09:00)
[2018-10-16] MEDS: SYMBICORT 160-4.5 MCG INHALER INHALATION SCH (09:26)
[2018-10-16] MEDS: METOPROLOL SUCCINATE (ER) 100 MG TAB.ER.24H PO SCH (14:42)
[2018-10-16 16:01] VITALS: BP 115/77; PULSE 47; RESP 16; TEMP 97.2
[2018-10-16] MEDS ORDERED: SPIRONOLACTONE 25 MG TAB PO SCH (17:30)
[2018-10-16] MEDS ORDERED: RIVAROXABAN 20 MG TAB PO SCH (17:30)
[2018-10-16] MEDS ORDERED: ATORVASTATIN 10 MG TAB PO SCH (17:30)
--- NOTE | 2018-10-17 00:47 | DS ---
DISCHARGE SUMMARY Kj Mcdonald is a 67-year-old male patient with a history of nonischemic cardiomyopathy and paroxysmal symptomatic atrial fibrillation that is VT zone of the device despite 300 mg of Toprol-XL. He has failed sotalol and has severe shortness of breath with sotalol. He is brought in for pulmonary vein isolation and linear ablation in the left atrium. Yesterday, he underwent cryoablation of the pulmonary veins followed by linear ablation of the left atrial roof as well as along the septum from the left atrium anteriorly. He is doing well today. He denies any chest discomfort. Yesterday, he had some sore throat. Today his sore throat is a lot better. He has no swallowing issues. No chest pain. No dizziness or lightheadedness. His groins are healing well. PLAN: Continue current medications. Continue cardiomyopathy medications. Continue anticoagulation and discharge home at 5:00 pm as long as he is able to ambulate in the hallways without any issues and we will see him in the office within 1-2 weeks. MMODL / IJN: [id number] /
--- NOTE | 2018-10-17 00:47 | LTR ---
DATE OF SERVICE: 10/16/[address] Vergara: I had the pleasure of seeing Kj Mcdonald in electrophysiology. Kj underwent an atrial fibrillation ablation yesterday with cryoablation of the pulmonary veins and linear ablation of the left atrial roof and the anterior left atrial septum. He tolerated the procedure well without any acute complications. Following that, I could not induce any atrial tachyarrhythmias on and off Isuprel. Hopefully this results in a reduction in his atrial fibrillation burden, especially since his ventricular rates are quite rapid and reach the VT zone of the ICD, despite 300 mg of Toprol-XL. Thank you for entrusting us in the care of this patient. Warm regards, Sincerely, MARIAM / RENETTAN: [id number] /
== END 2018-10-16 17:00 | disposition home or self-care (01) ==
LOC: CATHEP 11:03 → 1SOBS 17:25 → CATHEP 10-16 17:00
PROVIDERS: ATTEND Internal Medicine Clinical Cardiac Electrophysiology
DX: I48.0 Paroxysmal atrial fibrillation (principal); I42.8 Other cardiomyopathies; I11.0 Hypertensive heart disease with heart failure; I50.22 Chronic systolic (congestive) heart failure; Z95.810 Presence of automatic (implantable) cardiac defibrillator; E78.5 Hyperlipidemia, unspecified; Z87.891 Personal history of nicotine dependence; J44.9 Chronic obstructive pulmonary disease, unspecified; Z79.01 Long term (current) use of anticoagulants; Z79.51 Long term (current) use of inhaled steroids; Z79.899 Other long term (current) drug therapy
CPT/HCPCS: 94640; 85347; 93623; 93662; 93613; 93656; 84132; C1769 ×6; C1894 ×2; C1730 ×2; C1759; C1893; C1733; C1766; C1732; J2250; J2720; J1644 ×3; J1940; J2710; J2001; J3010; J2370; J0330; J2704; Q9967; 93609

== ENCOUNTER 2019-03-03 23:03 | Inpatient (IN) | payer MEDICARE ==
[2019-03-03] MEDS ORDERED: ASPIRIN 81 MG PO STA (23:21)
--- NOTE | 2019-03-03 23:23 | ED ---
Chest Pain HPI - General Chief Complaint: Chest Pain Stated Complaint: Chest Pain Time Seen by Provider: 03/03/19 23:21 Source: patient Mode of arrival: ambulatory Limitations: no limitations - History of Present Illness Initial Comments: Kj is a 68-year-old gentleman with a past medical history of nonischemic cardiomyopathy and frequent arrhythmias for which she has an AICD and ventricular demand pacemaker placed. Patient was seen and evaluated in the hospital in [place] on Monday night, at that time he is having chest pressure. His workup was unremarkable he was discharged home to follow up with his fisher we[place] Dr. See in office this week. Patient reports that one hour prior to arrival he began feeling pressure in his chest and difficulty breathing which prompted him to come to the ER. Patient reports he's had like this in the past with his heart is in a funny rhythm. Patient states that he typically does not have symptoms when his heart is in bed rhythms, he states that when he has his pacemaker interrogated he's told that he usually has 30-60 arrhythmia events in a month. Patient states that his cardiac caths of been clean in the past and that his problem is electrical and not plumbing. Patient denies any recent illness, fevers chills nausea or vomiting. He's been completely compliant with all of his home medications including his antiarrhythmics - Related Data Home Medications Medication Instructions Recorded Confirmed Furosemide 40 mg PO DAILY 03/17/14 03/03/19 Lovastatin 20 mg PO AC-SUPPER 03/17/14 03/03/19 Spironolactone 25 mg PO DAILY 03/17/14 03/03/19 Cholecalciferol [Vitamin D3 (25 1,000 unit PO TID 02/17/16 03/03/19 Mcg = 1000 Iu)] Mexiletine [Mexitil] 150 mg PO TID 02/17/16 03/03/19 clonazePAM [Clonazepam] 0.5 mg PO BID 02/17/16 03/03/19 Rivaroxaban [Xarelto] 20 mg PO DAILY 11/28/17 03/03/19 Albuterol Sulfate [Proair Hfa] 1 - 2 mcg INHALATION RT-QID PRN 09/01/18 03/03/19 Budesonide-Formot 160-4.5 Mcg 2 puff INHALATION RT-BID 09/01/18 03/03/19 [Symbicort 160-4.5 Mcg Inhaler] Metoprolol Succinate [Toprol XL] 200 mg PO QAM 09/01/18 03/03/19 Metoprolol Succinate [Toprol Xl] 100 mg PO BID@1200,1900 09/01/18 03/03/19 Docusate [Colace] 100 mg PO BID 10/11/18 03/03/19 Lisinopril [Zestril] 10 mg PO DAILY 03/03/19 03/03/19 buPROPion HCL [Wellbutrin XL] 300 mg PO DAILY 03/03/19 03/03/19 metroNIDAZOLE [Metrogel 1%] 1 applic TOPICAL BID 03/03/19 03/03/19 Allergies Allergy/AdvReac Type Severity Reaction Status Date / Time adhesive Allergy Rash/Hives Verified 03/03/19 23:21 Review of Systems ROS Statement: Those systems with pertinent positive or pertinent negative responses have been documented in the HPI. ROS Other: All systems not noted in ROS Statement are negative. EKG Findings - EKG Comments: EKG Findings:: EKG ordered for evaluation of chest pressure, any social EKG ordered at 2316, rate is 137, rhythm appears to be ventricular tachycardia with demand pace rhythm,. Underlying rhythm difficult to assess on this EKG. Repeat EKG was obtained at 2317, rate is 127 rhythm is ventricularly paced, when this EKG was compared to EKG obtained earlier in this calendar year there is no significant changes in morphology. Past Medical History Past Medical History: Atrial Fibrillation, Chest Pain / Angina, Heart Failure, Hyperlipidemia, Hypertension, Respiratory Disorder, Skin Disorder Additional Past Medical History / Comment(s): EMPHYSEMA, ROSACEA. SEE DR SEE'S H&P. History of Any Multi-Drug Resistant Organisms: None Reported Past Surgical History: AICD, Cardiac Ablation, Tonsillectomy Additional Past Surgical History / Comment(s): Cardiac Ablation x 3, Fx wrist repair, colonoscopy. Past Anesthesia/Blood Transfusion Reactions: No Reported Reaction Type of Cardiac Device: AICD Device Placement Date:: 06/18/2012, 06/2018 Past Psychological History: Anxiety Smoking Status: Former smoker - Past Family History Father Family Medical History: Cancer Additional Family Medical History / Comment(s): prostate,colon Mother Family Medical History: Cancer Additional Family Medical History / Comment(s): Colon CA Sister(s) Family Medical History: Cancer General Exam - General Exam Comments Initial Comments: Physical Exam GENERAL: Patient is well-developed and well-nourished. Diaphoretic appears uncomfortable HENT: Normocephalic, Atraumatic. EYES: PERRL, EOMI PULMONARY: Unlabored respirations. No audible rales rhonchi or wheezing was noted. CARDIOVASCULAR: Irregularly irregular Pacemaker in place in left chest Warm and well perfused extremities ABDOMEN: Soft and nontender with normal bowel sounds. SKIN: Skin is clear with no lesions or rashes and otherwise unremarkable. Diaphoretic : Deferred NEUROLOGIC: Patient is alert and oriented x3. Moving all extremities spontaneously MUSCULOSKELETAL: Normal extremities with adequate strength and full range of motion. No lower extremity swelling or edema. No calf tenderness. PSYCHIATRIC: Normal psychiatric evaluation. Limitations: no limitations Course Vital Signs 03/03/19 03/04/19 03/04/19 23:05 00:19 00:24 Temperature 97.9 F Pulse Rate 128 H 117 H 128 H Respiratory 16 18 18 Rate Blood Pressure 122/95 136/106 121/109 O2 Sat by Pulse 98 98 98 Oximetry 03/04/19 03/04/19 03/04/19 00:29 00:34 02:04 Temperature Pulse Rate 118 H 126 H 123 H Respiratory 18 18 18 Rate Blood Pressure 128/109 122/93 108/79 O2 Sat by Pulse 97 97 96 Oximetry 03/04/19 03/04/19 02:36 02:55 Temperature Pulse Rate 91 96 Respiratory 16 16 Rate Blood Pressure 103/91 121/83 O2 Sat by Pulse 98 98 Oximetry Chest Pain [facility] The patient was seen and evaluated, history is obtained from patient and This is a 68-year-old gentleman with nonischemic cardiomyopathy history of dysrhythmias presenting with chest pressure and EKG concerning for nonsustained V. tach Labs and imaging were ordered Labs no significant electrolyte abnormalities, troponin is negative Patient was given IV push Lopressor as he is on by mouth Lopressor home in is usually manages his arrhythmia as well, patient did not improve with IV Lopressor and a Cardizem drip was initiated Patient heart rate improving significantly with Cardizem infusion, episodes of nonsustained V. tach much less frequent, at this time we'll plan to admit the patient to the hospital for continuous cardiac monitoring and evaluation by cardiology as well as serial troponins. Patient has remained asymptomatic since arrival he has no complaints he is no longer diaphoretic is not short of breath he cannot since the V. tach when it occurs. Critical Care Time Critical Care Time: Yes Total Critical Care Time: 30 Critical Care Time: Critical Care Time Critical care time was exclusive of separately billable procedures and treating other patients and teaching time. Critical care was necessary to treat or prevent imminent or life-threatening deterioration. Given the critical condition in which the patient arrived, the patient was immediately assessed by myself and the nurse, and cardiac monitoring initiated due to the potential for rapid decompensation of the patient's clinical condition. During the course of the patients stay, I spent a considerable amount of time at the bedside performing serial re-evaluations of the patient's hemodynamic and clinical status because of the recognized potential threat to life or limb in this condition. I then had a chance to review not only all of the available current laboratory and radiographic studies obtained today, but I also reviewed old records available to me at the time. Additionally, any ancillary information available including mammography technologist records were reviewed. Sequential vital signs were obtained. Disposition Clinical Impression: Arrhythmia Disposition: ADMITTED IP TO THIS [facility] Condition: Serious Referrals: Alvin Redd MD [Primary Care Provider] - 1-2 days
[2019-03-03 23:44] LABS: Basophils # (A) 0.2 k/uL (0-0.2); Basophils % (A) 2 %; Eosinophils # (A) 0.3 k/uL (0-0.7); Eosinophils % (A) 4 %; HGB 15.4 gm/dL (13.0-17.5); Lymphocytes # (A) 1.9 k/uL (1.0-4.8); Lymphocytes % (A) 26 %; MCH 30.6 pg (25.0-35.0); MCHC 32.8 g/dL (31.0-37.0); MCV 93.3 fL (80.0-100.0); Mean Platelet Volume 7.1; Monocytes # (A) 0.5 k/uL (0-1.0); Monocytes % (A) 7 %; Neutrophils # (A) 4.5 k/uL (1.3-7.7); Neutrophils % (A) 59 %; Platelet Count 239 k/uL (150-450); RBC 5.03 m/uL (4.30-5.90); RDW 13.1 % (11.5-15.5); WBC 7.6 k/uL (3.8-10.6)
[2019-03-03 23:53] LABS: INR 1.3 (<1.2); Partial Thromboplastin Time 28.8 sec (22.0-30.0); Prothrombin Time 13.4 sec (9.0-12.0)
--- NOTE | 2019-03-03 23:53 | XR ---
EXAMINATION TYPE: XR chest 2V DATE OF EXAM: 03/03/2019 COMPARISON: 10/23/2018 HISTORY: Chest pain TECHNIQUE: Frontal and lateral views of the chest are obtained. FINDINGS: Heart is enlarged. There is no heart failure. There is left axillary pacemaker. There are chest leads. Costophrenic angles are clear. Bony thorax is intact. IMPRESSION: Cardiomegaly. No active cardiopulmonary disease. Heart is increased slightly compared to old exam.
[2019-03-03 23:57] LABS: Albumin 4.1 g/dL (3.5-5.0); Calcium 9.7 mg/dL (8.4-10.2); Potassium 4.5 mmol/L (3.5-5.1); Total Bilirubin 0.2 mg/dL (0.2-1.3); Total Protein 6.7 g/dL (6.3-8.2)
[2019-03-04] MEDS: NITROGLYCERIN SL TABS 0.4 MG TAB SUBLINGUAL STA ×3 (00:19→00:28)
[2019-03-04] MEDS: METOPROLOL TARTRATE 5 MG/5 ML VIAL IVP SCH ×7 (00:20→12:09)
[2019-03-04] MEDS ORDERED: FUROSEMIDE 10 MG/ML 4 ML VIAL IV STA ×2 (00:28→15:34)
[2019-03-04] MEDS ORDERED: DILTIAZEM DRIP BOLUS FROM BAG 1 MG SOLN IV ONE (00:55)
[2019-03-04] MEDS ORDERED: DILTIAZEM 125 MG in SODIUM CHLORIDE 0.9% 100 ML IV SCH (01:45)
[2019-03-04] MEDS: SYMBICORT 160-4.5 MCG INHALER INHALATION SCH ×2 (07:36→19:05)
[2019-03-04] MEDS ORDERED: HEPARIN SODIUM,PORCINE 5,000 UNIT/ML 1 ML VIAL SQ SCH (08:00)
[2019-03-04 09:41] LABS: Magnesium 1.9 mg/dL (1.6-2.3)
[2019-03-04] MEDS: clonazePAM 0.5 MG TAB PO SCH ×2 (10:39→23:17)
[2019-03-04] MEDS: DILTIAZEM CD 120 MG CAP.ER.24H PO SCH (10:39)
[2019-03-04] MEDS: SPIRONOLACTONE 25 MG TAB PO SCH (10:39)
[2019-03-04] MEDS: LISINOPRIL 10 MG TAB PO SCH (10:40)
[2019-03-04] MEDS: METOPROLOL SUCCINATE (ER) 100 MG TAB.ER.24H PO SCH ×2 (10:40→17:52)
[2019-03-04] MEDS: buPROPion XL 300 MG TAB.ER.24H PO SCH (12:49)
[2019-03-04] MEDS: MEXILETINE 150 MG CAP PO SCH ×2 (12:49→18:39)
--- NOTE | 2019-03-04 14:58 | P.CRDCN ---
History of Present Illness History of present illness: This is Cristal Shah PA-C dictating a consult on this patient The patient was interviewed and examined by me as well as by Dr. See Case discussed with Dr. See and he agrees with the plan of care IMPRESSION / ASSESSMENT: Dizziness and chest discomfort likely secondary to atrial tachycardia with RVR, P waves are upright in V1 and the inferior leads Nonischemic cardiomyopathy status post IV ICD placement Nonsustained ventricular tachycardia History of paroxysmal atrial fibrillation status post PVI, on anticoagulation with Xarelto Systolic CHF, class II, stable Hypertension Dyslipidemia PLAN: start oral Cardizem as 120 mg daily Start IV Lasix 40 mg twice a day, will cut back to once a day tomorrow and then convert to oral thereafter Continue anticoagulation with Xarelto Continue metoprolol succinate 200 mg in the morning, 100 mg in the afternoon, and 100 mg in the evening Continue mexiletine Continue lisinopril and spironolactone Decrease aspirin to low-dose aspirin and continue atorvastatin HPI Patient is a 68-year-old male with a past medical history of nonischemic cardiomyopathy status post BiV ICD placement, ventricular tachycardia, paroxysmal atrial fibrillation, congestive heart failure, hypertension, and dyslipidemia presented with complaints of chest pressure. He follows with Dr. See in the office. He shouldn't states he was in [place] visiting his family over the weekend when she was having increasing shortness of breath with climbing the stairs as well as chest pressure he went into the emergency department there. He was started on a medication which he cannot remember the name. States he was supposed to follow-up with Dr. See in the office this week. Last evening he was using the bathroom when he experienced a sudden onset of chest pressure in the left side of his chest and started to feel warm sensation coming up his legs and back. He states he got dizzy and felt as if he was given a pass out. Upon presentation to the emergency department his EKG showed atrial tachycardia with RVR and intermittent bi IV pacing. Blood pressure was stable. He also had some runs of nonsustained ventricular tachycardia. He was started on IV Cardizem. Patient seen and examined resting in bed. States his symptoms have improved. He is not currently having any chest pain or palpitations. ROS: No fevers, chills or rigors, no cough, phlegm or expectoration, no nausea, vomiting or diarrhea, no hematuria, dysuria, no musculoskeletal complaints, no strokes or seizures, no skin lesions. EXAMINATION: Temperature 97.3, pulse 98, respirations 17, blood pressure 125/83, oxygen saturation 98% on 2 L nasal cannula Patient seen and examined resting in bed, in no acute distress Lungs clear to auscultation bilaterally, no wheezing rhonchi or crackles Heart is irregular and tachycardic No elevated JVD noted No lower extremity edema Abdomen soft, nontender REVIEW OF LABS, ECG & MEDICAL DATA WBC 7.6, hemoglobin 15.4, platelets 239, potassium 4.5, creatinine 1.7, BUN 81, magnesium 2.0 Troponin negative 3 TSH within normal limits Past Medical History Past Medical History: Atrial Fibrillation, Chest Pain / Angina, Heart Failure, Hyperlipidemia, Hypertension, Respiratory Disorder, Skin Disorder Additional Past Medical History / Comment(s): ROSACEA. SEE DR SEE'S H&P. History of Any Multi-Drug Resistant Organisms: None Reported Past Surgical History: AICD, Cardiac Ablation, Tonsillectomy Additional Past Surgical History / Comment(s): Cardiac Ablation x 3, Fx wrist repair, colonoscopy. Past Anesthesia/Blood Transfusion Reactions: No Reported Reaction Type of Cardiac Device: AICD Device Placement Date:: 06/18/2012, 06/2018 Past Psychological History: Anxiety Smoking Status: Former smoker Past Alcohol Use History: None Reported Additional Past Alcohol Use History / Comment(s): Smoked from teens until 1997, smoked about 1 ppd. Past Drug Use History: None Reported - Past Family History Father Family Medical History: Cancer Additional Family Medical History / Comment(s): prostate,colon Mother Family Medical History: Cancer Additional Family Medical History / Comment(s): Colon CA Sister(s) Family Medical History: Cancer Medications and Allergies Home Medications Medication Instructions Recorded Confirmed Type Furosemide 40 mg PO DAILY 03/17/14 03/03/19 History Lovastatin 20 mg PO AC-SUPPER 03/17/14 03/03/19 History Spironolactone 25 mg PO DAILY 03/17/14 03/03/19 History Cholecalciferol [Vitamin D3 (25 1,000 unit PO TID 02/17/16 03/03/19 History Mcg = 1000 Iu)] Mexiletine [Mexitil] 150 mg PO TID 02/17/16 03/03/19 History clonazePAM [Clonazepam] 0.5 mg PO BID 02/17/16 03/03/19 History Rivaroxaban [Xarelto] 20 mg PO DAILY 11/28/17 03/03/19 History Albuterol Sulfate [Proair Hfa] 1 - 2 mcg INHALATION RT-QID PRN 09/01/18 03/03/19 History Budesonide-Formot 160-4.5 Mcg 2 puff INHALATION RT-BID 09/01/18 03/03/19 History [Symbicort 160-4.5 Mcg Inhaler] Metoprolol Succinate [Toprol XL] 200 mg PO QAM 09/01/18 03/03/19 History Metoprolol Succinate [Toprol Xl] 100 mg PO BID@1200,1900 09/01/18 03/03/19 History Docusate [Colace] 100 mg PO BID 10/11/18 03/03/19 History Lisinopril [Zestril] 10 mg PO DAILY 03/03/19 03/03/19 History buPROPion HCL [Wellbutrin XL] 300 mg PO DAILY 03/03/19 03/03/19 History metroNIDAZOLE [Metrogel 1%] 1 applic TOPICAL BID 03/03/19 03/03/19 History Allergies Allergy/AdvReac Type Severity Reaction Status Date / Time adhesive Allergy Rash/Hives Verified 03/03/19 23:21 Physical Exam Vitals: Vital Signs Temp Pulse Pulse Pulse Resp BP BP 03/04/19 08:11 96.9 F L 97 16 118/84 03/04/19 07:10 97.3 F L 98 17 125/83 03/04/19 03:02 92 03/04/19 02:55 96 16 121/83 03/04/19 02:36 91 16 103/91 03/04/19 02:04 123 H 18 108/79 03/04/19 00:34 126 H 18 122/93 03/04/19 00:29 118 H 18 128/109 03/04/19 00:24 128 H 18 121/109 03/04/19 00:19 117 H 18 136/106 03/03/19 23:05 97.9 F 128 H 16 122/95 Pulse Ox 03/04/19 08:11 97 03/04/19 07:10 98 03/04/19 03:02 03/04/19 02:55 98 03/04/19 02:36 98 03/04/19 02:04 96 03/04/19 00:34 97 03/04/19 00:29 97 03/04/19 00:24 98 03/04/19 00:19 98 03/03/19 23:05 98 Intake and Output 03/03/19 03/04/19 03/04/19 22:59 06:59 14:59 Output Total 475 700 Balance -475 -700 Output: Urine 475 700 Other: Weight 104.326 kg Results 03/03/19 23:30 03/03/19 23:30 Cardiac Enzymes 03/03/19 03/03/19 03/04/19 Range/Units 23:30 23:30 05:57 AST 52 (17-59) U/L Troponin I <0.012 <0.012 (0.000-0.034) ng/mL 03/04/19 Range/Units 12:30 AST (17-59) U/L Troponin I <0.012 (0.000-0.034) ng/mL Coagulation 03/03/19 Range/Units 23:30 PT 13.4 H (9.0-12.0) sec APTT 28.8 (22.0-30.0) sec CBC 03/03/19 Range/Units 23:30 WBC 7.6 (3.8-10.6) k/uL RBC 5.03 (4.30-5.90) m/uL Hgb 15.4 (13.0-17.5) gm/dL Hct 47.0 (39.0-53.0) % Plt Count 239 (150-450) k/uL Comprehensive Metabolic Panel 03/03/19 Range/Units 23:30 Sodium 138 (137-145) mmol/L Potassium 4.5 (3.5-5.1) mmol/L Chloride 103 (98-107) mmol/L Carbon Dioxide 24 (22-30) mmol/L BUN 21 H (9-20) mg/dL Creatinine 1.17 (0.66-1.25) mg/dL Glucose 140 H (74-99) mg/dL Calcium 9.7 (8.4-10.2) mg/dL AST 52 (17-59) U/L ALT 57 (21-72) U/L Alkaline Phosphatase 84 (38-126) U/L Total Protein 6.7 (6.3-8.2) g/dL Albumin 4.1 (3.5-5.0) g/dL Current Medications Generic Name Dose Route Start Last Admin Trade Name Freq PRN Reason Stop Dose Admin Aspirin 81 mg 03/05/19 09:00 Aspirin PO DAILY [facility] Atorvastatin Calcium 10 mg 03/04/19 17:30 Lipitor PO AC-SUPPER [facility] Budesonide/Formoterol Fumarate 2 puff 03/04/19 08:00 03/04/19 07:36 Symbicort 160-4.5 Mcg Inhaler INHALATION 2 puff RT-BID [facility] Administration Bupropion HCl 300 mg 03/04/19 09:00 03/04/19 12:49 Wellbutrin Xl PO 300 mg DAILY [facility] Administration Clonazepam 0.5 mg 03/04/19 09:00 03/04/19 10:39 Klonopin PO 0.5 mg BID [facility] Administration Diltiazem HCl 120 mg 03/04/19 09:15 03/04/19 10:39 Cardizem Cd PO 120 mg DAILY [facility] Administration Furosemide 40 mg 03/05/19 09:00 Lasix IV DAILY [facility] Diltiazem HCl 125 mg/ Sodium 125 mls @ 0 mls/hr 03/04/19 01:45 03/04/19 02:03 Chloride IV 5 mls/hr .Q0M [facility]AM 5 mls/hr Administration Protocol Per Protocol Lisinopril 10 mg 03/04/19 09:00 03/04/19 10:40 Zestril PO 10 mg DAILY [facility] Administration Metoprolol Succinate 100 mg 03/04/19 12:00 Toprol Xl PO BID@1200,1900 [facility] Metoprolol Succinate 200 mg 03/04/19 09:00 03/04/19 10:40 Toprol Xl PO 200 mg QAM [facility] Administration Mexiletine HCl 150 mg 03/04/19 09:00 03/04/19 12:49 Mexitil PO 150 mg TID [facility] Administration Rivaroxaban 20 mg 03/04/19 13:45 Xarelto PO DAILY [facility] Spironolactone 25 mg 03/04/19 09:00 03/04/19 10:39 Aldactone PO 25 mg DAILY [facility] Administration Intake and Output 03/03/19 03/04/19 03/04/19 22:59 06:59 14:59 Output Total 475 700 Balance -475 -700 Output: Urine 475 700 Other: Weight 104.326 kg 03/03/19 23:30 03/03/19 23:30
[2019-03-04 15:47] VITALS: RESP 18
[2019-03-04] MEDS: RIVAROXABAN 20 MG TAB PO SCH (17:52)
--- NOTE | 2019-03-04 20:12 | P.HPIM ---
History of Present Illness H&P Date: 03/04/19 Chief Complaint: Chest pressure History of presenting complaint: This is a very pleasant [address] Alvin Vergara. Also follows with window covering sales consultant Dr. See. Chronic stable medical conditions include hypertension, hyperlipidemia, rosacea. Patient has a biventricular AICD has a previous cardiac ablation. Has had 5 prior nonischemic cardiomyopathy, with anjali tricular tachycardia and paroxysmal atrial fibrillation. Patient was told to [place] and [place] visiting family and he started having increasing shortness of breath especially with climbing stairs and some chest pressure. He went on to the ER today. He started the medication the name of which she cannot remember. Patient was to come back and follow Dr. See in the office. Yesterday evening he started having increasing chest pressure on the left side, started to feel a warm sensation and near syncope. Also became dizzy lightheaded. Patient was short of breath.: Patient also broke out in a sweat. Symptoms lasted for at least half an hour. Better of any to the ER. Patient was felt to have atrial tachycardia with rapid ventricular rate. Was put on a Cardizem drip. Review of systems: GEN.: Tired EYES: None HEENT: None NECK: None RESPIRATORY: As above] CARDIOVASCULAR: As above GASTROINTESTINAL: None GENITOURINARY: None MUSCULOSKELETAL: None LYMPHATICS: None HEMATOLOGICAL: None PSYCHIATRY: None NEUROLOGICAL: None Past medical history to include: Nonischemic cardiomyopathy with a biventricular ICD, radicular tachycardia, axis little fibrillation, hypertension, hyperlipidemia, rosacea. Has also had cardiac ablation 3. Has AICD. Social history: Patient smokes cigarettes from his teenage years to 1997, about a pack a day. No alcohol. . Physical examination: VITAL SIGNS: 97.9, 128, 16, 122/95, 98% on room air GENERAL: BMI 32.1, laying in bed awake but anxious. EYES: Pupils equal. Conjunctiva normal. HEENT: External appearance of nose and ears normal, oral cavity grossly normal. NECK: JVD unable to assess masses not palpable. HEART: Heart sounds regular no edema. LUNGS: Respiratory rate increased; decreased breath sounds. ABDOMEN: Soft, nontender, liver spleen not palpable, no masses palpable. PSYCH: Alert and oriented x3; mood and affect normal. NEUROLOGICAL: Cranial nerves grossly intact; no facial asymmetry, power and sensation grossly intact. LYMPHATICS: No lymph nodes palpable in the axilla and neck INVESTIGATIONS, reviewed in the clinical context: White count 7.6 hemoglobin 15.4 potassium 4.5 creatinine 1.17 Troponin I 3 negative EKG tracing personally reviewed by me shows-paced rhythm with intraventricular block, reported as atrial tachycardia by cardiology Chest x-ray film personally reviewed by me-cardiomegaly with minimal cephalization Assessment: -Atrial tachycardia with rapid ventricular rate per cardiology -Non sustained ventricular tachycardia -Paroxysmal atrial fibrillation chronically on xarelto -Hyperlipidemia -Essential hypertension -Rosacea -Obesity BMI 32.1 Plan: Patient started and IV Lasix. IV Cardizem drip. Home medications resumed. Patient is also on Toprol-XL 100 mg twice a day and 200 mg a morning. Patient also mexiletine. Care was discussed with the patient and family the bedside. Patient was seen by cardiology earlier today. Past Medical History Past Medical History: Atrial Fibrillation, Chest Pain / Angina, Heart Failure, Hyperlipidemia, Hypertension, Respiratory Disorder, Skin Disorder Additional Past Medical History / Comment(s): ROSACEA. SEE DR SEE'S H&P. History of Any Multi-Drug Resistant Organisms: None Reported Past Surgical History: AICD, Cardiac Ablation, Tonsillectomy Additional Past Surgical History / Comment(s): Cardiac Ablation x 3, Fx wrist repair, colonoscopy. Past Anesthesia/Blood Transfusion Reactions: No Reported Reaction Type of Cardiac Device: AICD Device Placement Date:: 06/18/2012, 06/2018 Past Psychological History: Anxiety Smoking Status: Former smoker Past Alcohol Use History: None Reported Additional Past Alcohol Use History / Comment(s): Smoked from teens until 1997, smoked about 1 ppd. Past Drug Use History: None Reported - Past Family History Father Family Medical History: Cancer Additional Family Medical History / Comment(s): prostate,colon Mother Family Medical History: Cancer Additional Family Medical History / Comment(s): Colon CA Sister(s) Family Medical History: Cancer Medications and Allergies Home Medications Medication Instructions Recorded Confirmed Type Furosemide 40 mg PO DAILY 03/17/14 03/03/19 History Lovastatin 20 mg PO AC-SUPPER 03/17/14 03/03/19 History Spironolactone 25 mg PO DAILY 03/17/14 03/03/19 History Cholecalciferol [Vitamin D3 (25 1,000 unit PO TID 02/17/16 03/03/19 History Mcg = 1000 Iu)] Mexiletine [Mexitil] 150 mg PO TID 02/17/16 03/03/19 History clonazePAM [Clonazepam] 0.5 mg PO BID 02/17/16 03/03/19 History Rivaroxaban [Xarelto] 20 mg PO DAILY 11/28/17 03/03/19 History Albuterol Sulfate [Proair Hfa] 1 - 2 mcg INHALATION RT-QID PRN 09/01/18 03/03/19 History Budesonide-Formot 160-4.5 Mcg 2 puff INHALATION RT-BID 09/01/18 03/03/19 History [Symbicort 160-4.5 Mcg Inhaler] Metoprolol Succinate [Toprol XL] 200 mg PO QAM 09/01/18 03/03/19 History Metoprolol Succinate [Toprol Xl] 100 mg PO BID@1200,1900 09/01/18 03/03/19 History Docusate [Colace] 100 mg PO BID 10/11/18 03/03/19 History Lisinopril [Zestril] 10 mg PO DAILY 03/03/19 03/03/19 History buPROPion HCL [Wellbutrin XL] 300 mg PO DAILY 03/03/19 03/03/19 History metroNIDAZOLE [Metrogel 1%] 1 applic TOPICAL BID 03/03/19 03/03/19 History Allergies Allergy/AdvReac Type Severity Reaction Status Date / Time adhesive Allergy Rash/Hives Verified 03/03/19 23:21 Physical Exam Vitals: Vital Signs Temp Pulse Pulse Pulse Resp BP BP 03/04/19 08:11 96.9 F L 97 16 118/84 03/04/19 07:10 97.3 F L 98 17 125/83 03/04/19 03:02 92 03/04/19 02:55 96 16 121/83 03/04/19 02:36 91 16 103/91 03/04/19 02:04 123 H 18 108/79 03/04/19 00:34 126 H 18 122/93 03/04/19 00:29 118 H 18 128/109 03/04/19 00:24 128 H 18 121/109 03/04/19 00:19 117 H 18 136/106 03/03/19 23:05 97.9 F 128 H 16 122/95 Pulse Ox 03/04/19 08:11 97 03/04/19 07:10 98 03/04/19 03:02 03/04/19 02:55 98 03/04/19 02:36 98 03/04/19 02:04 96 03/04/19 00:34 97 03/04/19 00:29 97 03/04/19 00:24 98 03/04/19 00:19 98 03/03/19 23:05 98 Intake and Output 03/03/19 03/04/19 03/04/19 22:59 06:59 14:59 Output Total 475 700 Balance -475 -700 Output: Urine 475 700 Other: Weight 104.326 kg Results CBC & Chem 7: 03/03/19 23:30 03/03/19 23:30 Labs: Abnormal Lab Results - Last 24 Hours (Table) 03/03/19 03/03/19 Range/Units 23:30 23:30 PT 13.4 H (9.0-12.0) sec INR 1.3 H (<1.2) BUN 21 H (9-20) mg/dL Glucose 140 H (74-99) mg/dL Thrombosis Risk Factor Assmnt - Choose All That Apply Any of the Below Risk Factors Present?: No
[2019-03-04] MEDS: ATORVASTATIN 10 MG TAB PO SCH (23:17)
[2019-03-05] MEDS: METOPROLOL SUCCINATE (ER) 100 MG TAB.ER.24H PO SCH ×3 (01:05→13:50)
[2019-03-05] MEDS: MEXILETINE 150 MG CAP PO SCH ×3 (01:06→16:55)
[2019-03-05] MEDS ORDERED: ASPIRIN 325 MG TAB PO SCH (09:00)
[2019-03-05] MEDS ORDERED: ASPIRIN 81 MG PO SCH (09:00)
[2019-03-05] MEDS ORDERED: FUROSEMIDE 10 MG/ML 4 ML VIAL IV SCH (09:00)
[2019-03-05] MEDS: SYMBICORT 160-4.5 MCG INHALER INHALATION SCH (09:16)
[2019-03-05] MEDS: DILTIAZEM CD 120 MG CAP.ER.24H PO SCH (10:21)
[2019-03-05] MEDS: LISINOPRIL 10 MG TAB PO SCH (10:21)
[2019-03-05] MEDS: SPIRONOLACTONE 25 MG TAB PO SCH (10:22)
[2019-03-05] MEDS: clonazePAM 0.5 MG TAB PO SCH (10:22)
[2019-03-05] MEDS: RIVAROXABAN 20 MG TAB PO SCH (10:22)
[2019-03-05] MEDS: buPROPion XL 300 MG TAB.ER.24H PO SCH (10:29)
[2019-03-05 13:22] VITALS: BP 109/72; PULSE 82; TEMP 98.2
[2019-03-05 15:00] LABS: Calcium 9.8 mg/dL (8.4-10.2); Potassium 4.4 mmol/L (3.5-5.1)
--- NOTE | 2019-03-05 15:25 | P.PN ---
Subjective Progress Note Date: 03/05/19 Patient is a 68-year-old male with a past medical history of nonischemic cardiomyopathy status post BiV ICD placement, ventricular tachycardia, paroxysmal atrial fibrillation, congestive heart failure, hypertension, and dyslipidemia presented with complaints of chest pressure. He follows with Dr. See in the office. Patient states he was in [place] visiting his family over the weekend when she was having increasing shortness of breath with climbing the stairs as well as chest pressure he went into the emergency department there. He was started on a medication which he cannot remember the name. States he was supposed to follow-up with Dr. See in the office this week. The evening prior to admission he was using the bathroom when he experienced a sudden onset of chest pressure in the left side of his chest and started to feel warm sensation coming up his legs and back. He states he got dizzy and felt as if he was given a pass out. Upon presentation to the emergency department his EKG showed atrial tachycardia with RVR and intermittent bi IV pacing. Blood pressure was stable. He also had some runs of nonsustained ventricular tachycardia. Patient was seen in consultation by Dr. Hewitt yesterday, he was initiated on oral Cardizem, and was also given some IV Lasix. We continued anticoagulation with xarelto and continued maximum dose of beta antonia along with mexiletine lisinopril and Aldactone. He continues to be in atrial fibrillation today with rate is under adequate control. Breathing is stable. We'll discontinue the IV Lasix today. Patient should be able to be discharged home today, follow-up with Dr. See in the office. Outpatient ablation will be scheduled. Objective - Vital Signs Vital signs: Vital Signs Temp 98.2 F 03/05/19 08:00 Pulse 82 03/05/19 08:00 Resp 18 03/05/19 08:00 BP 109/72 03/05/19 08:00 Pulse Ox 96 03/05/19 08:00 Intake & Output 03/04/19 03/05/19 03/05/19 18:59 06:59 18:59 Intake Total 462 Output Total 2100 350 500 Balance -2100 -350 -38 Weight 105.1 kg Intake: Oral 462 Output: Urine 2100 350 500 Other: Voiding Method Urinal Urinal # Voids 3 1 # Bowel Movements 1 - Exam Patient seen and examined resting in bed, in no acute distress Lungs clear to auscultation bilaterally, no wheezing rhonchi or crackles Heart is irregular and tachycardic No elevated JVD noted No lower extremity edema Abdomen soft, nontender - Labs CBC & Chem 7: 03/03/19 23:30 03/05/19 14:24 Assessment and Plan Plan: IMPRESSION / ASSESSMENT: #1 Dizziness and chest discomfort likely secondary to atrial tachycardia with RVR, P waves are upright in V1 and the inferior leads #2 Nonischemic cardiomyopathy status post IV ICD placement #3 Nonsustained ventricular tachycardia #4 History of paroxysmal atrial fibrillation status post PVI, on anticoagulation with Xarelto #5 Systolic CHF, class II, stable #6 Hypertension #7Dyslipidemia Plan At this point in time we will continue the patient on his current medication, other then we will discontinue the IV Lasix and start him on 60 mg of Lasix by mouth. He may be able to be discharged home today. Follow-up appointment with Dr. See and outpatient ablation as scheduled by Dr. See. DNP note has been reviewed, I agree with a documented findings and plan of care. Patient was seen and examined.
[2019-03-05] MEDS: ATORVASTATIN 10 MG TAB PO SCH (16:55)
[2019-03-06] MEDS ORDERED: FUROSEMIDE 20 MG TAB PO SCH (09:00)
--- NOTE | 2019-03-10 01:13 | P.DS ---
Providers Date of admission: 03/04/19 02:29 Expected date of discharge: 03/05/19 Attending physician: Jacoby Marin Consults: 03/04/19 02:23 Consult Physician Urgent Consulting Provider: Farrukh See Consult Reason/Comments: arrhythmia Do you want consulting provider notified?: Yes, Notify in am Primary care physician: [facility] Course: Chief Complaint: Chest pressure Hospital course: This is a very pleasant [address] Alvin Vergara. 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 See. Chronic stable medical conditions include hypertension, hyperlipidemia, rosacea. Patient has a biventricular AICD , with previous cardiac ablation. nonischemic cardiomyopathy, with ventricular tachycardia and paroxysmal atrial fibrillation. Patient was told over weekend in [place], while he was visiting family - started having increasing shortness of breath especially with climbing stairs and some chest pressure. He went on to the ER in [place]. He started the medication the name of which she cannot remember. Patient was to come back and follow Dr. See in the office. Yesterday evening he started having increasing chest pressure on the left side, started to feel a warm sensation and near syncope. Also became dizzy lightheaded. Patient was short of breath.: Patient also broke out in a sweat. Symptoms lasted for at least half an hour. Patient was felt to have atrial tachycardia with rapid ventricular rate. Was put on a Cardizem drip. Also given IV Lasix. Day of discharge 20 much better. Breathing stable. Heart rate controlled. Cleared by cardiology to home. Remains in atrial fibrillation with rate control. Outpatient ablation is being scheduled. Discharge statement Consultation: Dr. Sandeep See from cardiology Physical examination: VITAL SIGNS: 97.9, 128, 16, 122/95, 98% on room air GENERAL: BMI 32.1, laying in bed awake but anxious. EYES: Pupils equal. Conjunctiva normal. HEENT: External appearance of nose and ears normal, oral cavity grossly normal. NECK: JVD unable to assess masses not palpable. HEART: Heart sounds regular no edema. LUNGS: Respiratory rate increased; decreased breath sounds. ABDOMEN: Soft, nontender, liver spleen not palpable, no masses palpable. PSYCH: Alert and oriented x3; mood and affect normal. NEUROLOGICAL: Cranial nerves grossly intact; no facial asymmetry, power and sensation grossly intact. LYMPHATICS: No lymph nodes palpable in the axilla and neck INVESTIGATIONS, reviewed in the clinical context: White count 7.6 hemoglobin 15.4 potassium 4.5 creatinine 1.17 Troponin I 3 negative EKG tracing personally reviewed by me shows-paced rhythm with intraventricular block, reported as atrial tachycardia by cardiology Chest x-ray film personally reviewed by me-cardiomegaly with minimal cephalization Assessment: -Atrial tachycardia with rapid ventricular rate per cardiology -Non sustained ventricular tachycardia -Paroxysmal atrial fibrillation chronically on xarelto -Hyperlipidemia -Essential hypertension -Rosacea -Obesity BMI 32.1 Plan: Patient started and IV Lasix. IV Cardizem drip. Home medications resumed. Patient is also on Toprol-XL 100 mg twice a day and 200 mg a morning. Patient also mexiletine. Care was discussed with the patient and family the bedside. Patient was seen by cardiology earlier today. Patient Condition at Discharge: Stable Plan - Discharge Summary Discharge Rx Participant: Yes New Discharge Prescriptions: New Aspirin 81 mg PO DAILY chew Diltiazem Cd [Cardizem CD] 120 mg PO DAILY #30 cap.er.24h Furosemide [Lasix] 60 mg PO DAILY #50 tablet Continue Spironolactone 25 mg PO DAILY Lovastatin 20 mg PO AC-SUPPER clonazePAM [Clonazepam] 0.5 mg PO BID Mexiletine [Mexitil] 150 mg PO TID Rivaroxaban [Xarelto] 20 mg PO DAILY Metoprolol Succinate [Toprol Xl] 100 mg PO BID@1200,1900 Budesonide-Formot 160-4.5 Mcg [Symbicort 160-4.5 Mcg Inhaler] 2 puff INHALATION RT-BID Albuterol Sulfate [Proair Hfa] 1 - 2 mcg INHALATION RT-QID PRN PRN Reason: Shortness Of Breath Metoprolol Succinate [Toprol XL] 200 mg PO QAM Docusate [Colace] 100 mg PO BID buPROPion HCL [Wellbutrin XL] 300 mg PO DAILY Lisinopril [Zestril] 10 mg PO DAILY metroNIDAZOLE [Metrogel 1%] 1 applic TOPICAL BID Discontinued Furosemide 40 mg PO DAILY No Action Cholecalciferol [Vitamin D3 (25 Mcg = 1000 Iu)] 1,000 unit PO TID Discharge Medication List Lovastatin 20 mg PO AC-SUPPER 11/03/14 [History] Spironolactone 25 mg PO DAILY 03/17/14 [History] Cholecalciferol [Vitamin D3 (25 Mcg = 1000 Iu)] 1,000 unit PO TID 02/17/16 [History] Mexiletine [Mexitil] 150 mg PO TID 02/17/16 [History] clonazePAM [Clonazepam] 0.5 mg PO BID 02/17/16 [History] Rivaroxaban [Xarelto] 20 mg PO DAILY 11/28/17 [History] Albuterol Sulfate [Proair Hfa] 1 - 2 mcg INHALATION RT-QID PRN 09/01/18 [History] Budesonide-Formot 160-4.5 Mcg [Symbicort 160-4.5 Mcg Inhaler] 2 puff INHALATION RT-BID 09/01/18 [History] Metoprolol Succinate [Toprol XL] 200 mg PO QAM 09/01/18 [History] Metoprolol Succinate [Toprol Xl] 100 mg PO BID@1200,1900 09/01/18 [History] Docusate [Colace] 100 mg PO BID 10/11/18 [History] Lisinopril [Zestril] 10 mg PO DAILY 03/03/19 [History] buPROPion HCL [Wellbutrin XL] 300 mg PO DAILY 03/03/19 [History] metroNIDAZOLE [Metrogel 1%] 1 applic TOPICAL BID 03/03/19 [History] Aspirin 81 mg PO DAILY chew 03/05/19 [Rx] Diltiazem Cd [Cardizem CD] 120 mg PO DAILY #30 cap.er.24h 03/05/19 [Rx] Furosemide [Lasix] 60 mg PO DAILY #50 tablet 03/05/19 [Rx] Follow up Appointment(s)/Referral(s): Farrukh See MD [STAFF PHYSICIAN] - 03/20/19 3:00 pm (With Cristal JAQUEZ) Alvin Redd MD [Primary Care Provider] - 3 Days (Office will call with a follow up appointment. ) Ambulatory/Diagnostic Orders: Basic Metabolic Panel [LAB.AMB] Time Frame: 1 Week, Location: None Selected Patient Instructions/Handouts: A-fib (Atrial Fibrillation) (DC) Discharge Disposition: HOME SELF-CARE
--- NOTE | 2019-03-13 16:24 | CDI ---
Documentation Clarification Form Date: 03/13/19 From: Cecy Moscoso Phone: If you have a question about this query, please contact Lainey Hawk, Gyroscope Repairer at [phone] between 8am and 5pm. Admit Date: 03/04/19 Discharge Date: 03/05/19 Patient Name: Kj Mcdonald Visit Number: [id number] ATTENTION: The Clinical Documentation Specialists (CDI) and [facility] Coding Staff appreciate your assistance in clarifying documentation. Please respond to the clarification below the line at the bottom and electronically sign. The CDI & [facility] Coding staff will review the response and follow-up if needed. Please note: Queries are made part of the Legal Health Record. If you have any questions, please contact the author of this message via ITS. Dear Dr David See, Per documentation your consult - systolic CHF, class II, stable. History/Risk Factors: atrial tachycardia, non-sustained V tach, nonischemic cardiomyopathy s/p ICD placement, HTN Clinical Indicators: He went to ER due to increasing chest pressure on left side, warm sensation, near syncope & SOB. VS/Pulse OX: T-97.9, P-128, R-16, BP-122/95, O2 sat-98 RA BNP: 2700 Echocardiogram Results: none Chest X Ray: Cardiomegaly. No active cardiopulmonary disease. Heart is increased slightly compared to old exam. Treatment: IV Lasix 40 mg on 03/04 x2 and 03/05 x once, PO Lasix on 03/06 In your professional opinion, can you please clarify the acuity systolic CHF if known? ACUITY Acute Chronic Acute on Chronic Heart Failure Unable to Determine Other, please specify Diagnosis: Chronic systolic CHF MTDD
== END 2019-03-05 17:28 | disposition home or self-care (01) | DRG 309 ==
LOC: EC 23:03 → 3SCARD 03-04 02:29
PROVIDERS: ADMIT Hospitalist; ATTEND Hospitalist
DX: I47.1 Supraventricular tachycardia (principal); I42.8 Other cardiomyopathies; I50.22 Chronic systolic (congestive) heart failure; I47.2 Ventricular tachycardia; I11.0 Hypertensive heart disease with heart failure; I48.0 Paroxysmal atrial fibrillation; J43.9 Emphysema, unspecified; E78.5 Hyperlipidemia, unspecified; L71.9 Rosacea, unspecified; F41.9 Anxiety disorder, unspecified; E66.9 Obesity, unspecified; Z68.32 Body mass index [BMI] 32.0-32.9, adult; Z79.51 Long term (current) use of inhaled steroids; Z79.01 Long term (current) use of anticoagulants; Z79.899 Other long term (current) drug therapy; Z87.891 Personal history of nicotine dependence; Z95.810 Presence of automatic (implantable) cardiac defibrillator; Z98.890 Other specified postprocedural states; Z87.81 Personal history of (healed) traumatic fracture; Z91.048 Other nonmedicinal substance allergy status; Z80.0 Family history of malignant neoplasm of digestive organs; Z80.42 Family history of malignant neoplasm of prostate
CPT/HCPCS: 36415; 71046; 80048; 80053; 83735; 83880; 84443; 84484; 85025; 85610; 85730; 93005; 94640; 96365; 96366; 96375; 96376; 99291

== ENCOUNTER → 2019-03-12 | Outpatient (CLI) | payer MEDICARE ==
[2019-03-12 16:50] LABS: African American GFR (CKD) 71.6 (60.0-200.0); Anion Gap 9.4 mmol/L (4.00-12.00); BUN/Creat Ratio 16.67 Ratio (12.00-20.00); Calcium 9.4 mg/dL (8.7-10.3); Carbon Dioxide 29.6 mmol/L (21.6-31.8); Potassium 5.1 mmol/L (3.5-5.5)
== END | disposition home or self-care (01) ==
LOC: LABWHC1 07:40
PROVIDERS: ATTEND Hospitalist
DX: I47.2 Ventricular tachycardia (principal)
CPT/HCPCS: 36415; 80048

== ENCOUNTER 2019-03-28 10:34 | Day surgery (SDC) | payer MEDICARE ==
[2019-03-26 13:29] VITALS: BMI 32.1
[2019-03-28] MEDS: SODIUM CHLORIDE 0.9% 1,000 ML IV SCH (11:34)
[2019-03-28] MEDS ORDERED: PROPOFOL 10 MG/ML 20 ML VIAL IV ONE (13:18)
[2019-03-28] MEDS ORDERED: WATER FOR INJECTION, STERILE 10 ML VIAL IV ONE (13:18)
[2019-03-28] MEDS ORDERED: ATROPINE SULFATE 0.4 MG/ML 1 ML VIAL ONE (13:18)
[2019-03-28] MEDS ORDERED: MIDAZOLAM 2 MG/2 ML VIAL ONE (13:18)
[2019-03-28] MEDS ORDERED: ISOPROTERENOL 250 MCG/1.25 ML SYR IV ONE (13:18)
[2019-03-28] MEDS ORDERED: fentaNYL (PF) 50 MCG/ML 2 ML AMP ONE (13:18)
[2019-03-28] MEDS ORDERED: LIDOCAINE URO-JET JELLY 2% 5 ML KIT ONE (13:41)
[2019-03-28] MEDS ORDERED: LIDOCAINE 1% INJ 10MG/ML (20 ML MDV) SQ ONE (13:58)
[2019-03-28] MEDS ORDERED: HEPARIN SODIUM (1,000 UNIT/ML) 1,000 UNIT in SODIUM CHLORIDE 0.9% 1,000 ML IRRIGATION ONE (15:42)
--- NOTE | 2019-03-28 16:02 | P.PRLE ---
RE: Kj Mcdonald Dear Dr. Tramaine Underwood underwent a diagnostic EP study which induced an atrial tachycardia with a cycle length of 400 ms which is different from his very rapid atrial tachycardia that brought him to the hospital last month. It is very likely that he will have multiple different episodes of atrial tachycardia and atrial fibrillation and therefore after discussion with his I decided to proceed with an A-V node modification He underwent successful AV node ablation and now is biventricular paced completely He will continue all his cardiac medications as before Thank you for entrusting me with the care of the patient Warm regards Sincerely Farrukh See
[2019-03-28] MEDS ORDERED: ACETAMINOPHEN TAB 325 MG TAB PO PRN (16:03)
[2019-03-28] MEDS ORDERED: HYDROcodone/APAP 5-325MG 1 EACH TAB PO PRN (16:03)
[2019-03-28] MEDS ORDERED: ACETAMINOPHEN IV (For NPO) 1,000 MG in EMPTY BAG 1 BAG IVPB ONE (16:03)
--- NOTE | 2019-03-28 16:12 | P.PCN ---
Preoperative Diagnosis: Diagnosis Atrial fibrillation/atrial tachycardia, symptomatic, with RVR Underlying nonischemic cardio myopathy Procedures performed Diagnostic EP study Programmed stimulation following Isuprel Biventricular ICD interrogation with reprogramming, see separate dictation AV node ablation, see separate dictation Details of procedure Patient was brought to the EP lab in a fasting state. Informed consent was obtained prior to the procedure. The right groin was prepped and draped as a protocol and venous sheaths were placed in the right femoral vein via this the catheter was first placed in the high right atrium and later in the coronary sinus for Ananda sinus pacing and recording Sinus cycle length 941 ms IN interval, 166 ms, QRS 142 ms biventricular paced and QT interval 455 ms The device was reprogrammed to VVI 40 beats a minute and AH interval 90 ms HV interval 65 ms Sinus node recovery times at a pacing cycle length of 500 ms was 1079 ms AV node Wenckebach block for 90 ms Burst stimulation from the high right atrium, extra stimulation from the high right atrium upper double extrastimuli No arrhythmias induced Burst stimulation from the coronary sinus and access stimulation after double extra stimulation from the coronary sinus No arrhythmias induced Isuprel started high-dose IV atropine given AV node Wenckebach block 350 ms Double extrastimuli from the coronary sinus did know arrhythmias induced Burst stimulation at a pacing cycle length of 330 milliseconds induced an atrial tachycardia with a concentric activation Entrainment mapping from the CS os showed a long post-pacing interval Repeat pacing maneuvers result in termination of the tachycardia Thereafter this tachycardia could not be reinduced On reviewing his admission ECG from last visit, he had tachycardia with a cycle length of 240 ms. We did not induce his clinical tachycardia Therefore I had a discussion with his and I recommended that we proceed with an AV node ablation followed by biventricular pacing Please see full dictation for the AV node and bilateral total ICD interrogation and reprogramming in a separate note
--- NOTE | 2019-03-28 16:16 | P.PCN ---
Preoperative Diagnosis: Diagnosis: Rapid atrial tachycardia/atrial fibrillation with RVR, symptomatic Procedure: Device interrogation with reprogramming prior to the procedure AV Node Ablation/modification. Device interrogation with reprogramming postprocedure Operators: Dr. See and Cristal Shah PA-C Patient was brought to the EP lab in a fasting state. Written, informed consent was obtained prior to the procedure. Access was obtained, sheath placed in right femoral vein. 1. Preprocedure device interrogation and reprogramming Device interrogation with reprogramming performed. Rate responsiveness was turned off and the pacing rate was reprogrammed to a backup mode prior to ablation. Tachycardia detections turned off. Lead impedance is documented, sensing and pacing thresholds performed prior to the procedure Backup pacing, VVI 40 bpm 2. AV node ablation A Mapping/Ablation catheter was placed and right-sided AV node radiofrequency ablation/modification was performed. Complete heart block was achieved with occasional junctional escape rhythm above 40 bpm, atropine was given and no recovery of AV node function was noted 3. Device programming postprocedure Post ablation, device reprogramming was performed. Base Pacing rate was programmed to 90 bpm. Patient's device was reprogrammed and the interrogated. Lead impedance is stable from preoperative measurements Vascular sheaths were removed at the end of the procedure, hemostasis was assured, the patient was then transferred to recovery room/telemetry in stable condition. Conclusions: Successful ablation of the AV node. Plan: Pacing at 90 bpm for at least 2 weeks. Telemetry monitoring for 24 hours. Continue anticoagulation. Patient tolerated the procedure well without any acute complications.
[2019-03-28] MEDS ORDERED: ATORVASTATIN 10 MG TAB PO SCH (17:30)
[2019-03-28] MEDS: RIVAROXABAN 20 MG TAB PO SCH (18:54)
[2019-03-28] MEDS ORDERED: METOPROLOL SUCCINATE (ER) 100 MG TAB.ER.24H PO SCH (19:00)
[2019-03-28] MEDS: SYMBICORT 160-4.5 MCG INHALER INHALATION SCH (19:44)
[2019-03-28] MEDS: DOCUSATE 100 MG CAP PO SCH (21:57)
[2019-03-28] MEDS: MEXILETINE 150 MG CAP PO SCH (21:57)
[2019-03-28] MEDS: clonazePAM 0.5 MG TAB PO SCH (21:57)
[2019-03-29 00:08] VITALS: PULSE 89
[2019-03-29] MEDS: SODIUM CHLORIDE 0.9% 1,000 ML IV SCH (04:53)
[2019-03-29 06:52] VITALS: BP 97/68; RESP 18; TEMP 97.6
[2019-03-29] MEDS: SYMBICORT 160-4.5 MCG INHALER INHALATION SCH (07:15)
[2019-03-29] MEDS: MEXILETINE 150 MG CAP PO SCH (08:09)
[2019-03-29] MEDS: DOCUSATE 100 MG CAP PO SCH (08:09)
[2019-03-29] MEDS: RIVAROXABAN 20 MG TAB PO SCH (08:10)
[2019-03-29] MEDS: clonazePAM 0.5 MG TAB PO SCH (08:10)
[2019-03-29] MEDS ORDERED: LISINOPRIL 10 MG TAB PO SCH (09:00)
[2019-03-29] MEDS ORDERED: ASPIRIN 81 MG PO SCH (09:00)
[2019-03-29] MEDS ORDERED: SPIRONOLACTONE 25 MG TAB PO SCH (09:00)
[2019-03-29] MEDS ORDERED: FUROSEMIDE 20 MG TAB PO SCH (09:00)
[2019-03-29] MEDS ORDERED: buPROPion XL 300 MG TAB.ER.24H PO SCH (09:00)
[2019-03-29] MEDS ORDERED: METOPROLOL SUCCINATE (ER) 100 MG TAB.ER.24H PO SCH (09:00)
--- NOTE | 2019-03-29 13:22 | P.DS ---
Providers Attending physician: Farrukh See Primary care physician: [facility] Course: This is a pleasant 68-year-old male who underwent successful ablation of the AV node and reprogramming of his device to that his base pacing rate at 90 bpm. He is seen and examined resting comfortably in bed with his at the bedside. He denies any symptoms of chest discomfort, shortness of breath, dizziness or palpitations. Right femoral access site soft, nontender, no h ematoma or ecchymosis with strong distal pulses. Blood pressure 97/68 heart rate 89 afebrile maintaining oxygen saturation on room air. Medtronic device interrogation reveals normal BiV function. GENERAL: Well-appearing, well-nourished and in no acute distress. NECK: Supple without JVD or thyromegaly. LUNGS: Breath sounds clear to auscultation bilaterally. Respiration equal and unlabored. No wheezes, rales or rhonchi. HEART: Regular rate and rhythm without murmurs, rubs or gallops. S1 and S2 heard. EXTREMITIES: Normal range of motion, no edema. No clubbing or cyanosis. Peripheral pulses intact. ASSESSMENT AV node ablation Device upgrade to 100% BiV pacing Paroxysmal atrial fibrillation on fci anticoagulation Non-ischemic cardiomyopathy Hypertension Dyslipidemia COPD Chronic systolic heart failure PLAN Discontinue cardizem. Continue all other medications with no changes in dosages. Follow up in the office for groin check 04/09. Avoid excessive movement of the right left for 48 hours. Nurse Practitioner note has been reviewed, I agree with a documented findings and plan of care. Patient was seen and examined. Plan - Discharge Summary Discharge Rx Participant: No New Discharge Prescriptions: Continue Spironolactone 25 mg PO DAILY Lovastatin 20 mg PO AC-SUPPER Cholecalciferol [Vitamin D3 (25 Mcg = 1000 Iu)] 1,000 unit PO TID Mexiletine [Mexitil] 150 mg PO TID Rivaroxaban [Xarelto] 20 mg PO DAILY Metoprolol Succinate [Toprol Xl] 100 mg PO BID@1200,1900 Budesonide-Formot 160-4.5 Mcg [Symbicort 160-4.5 Mcg Inhaler] 2 puff INHALATION RT-BID Albuterol Sulfate [Proair Hfa] 1 - 2 mcg INHALATION RT-QID PRN PRN Reason: Shortness Of Breath Metoprolol Succinate [Toprol XL] 200 mg PO QAM Docusate [Colace] 100 mg PO BID buPROPion HCL [Wellbutrin XL] 300 mg PO DAILY Lisinopril [Zestril] 10 mg PO DAILY metroNIDAZOLE [Metrogel 1%] 1 applic TOPICAL DAILY Aspirin 81 mg PO DAILY chew Furosemide [Lasix] 60 mg PO DAILY #50 tablet clonazePAM 0.5 mg PO TID Discontinued Diltiazem Cd [Cardizem CD] 120 mg PO DAILY #30 cap.er.24h Discharge Medication List Lovastatin 20 mg PO AC-SUPPER 03/17/14 [History] Spironolactone 25 mg PO DAILY 03/17/14 [History] Cholecalciferol [Vitamin D3 (25 Mcg = 1000 Iu)] 1,000 unit PO TID 02/17/16 [History] Mexiletine [Mexitil] 150 mg PO TID 02/17/16 [History] Rivaroxaban [Xarelto] 20 mg PO DAILY 11/28/17 [History] Albuterol Sulfate [Proair Hfa] 1 - 2 mcg INHALATION RT-QID PRN 09/01/18 [History] Budesonide-Formot 160-4.5 Mcg [Symbicort 160-4.5 Mcg Inhaler] 2 puff INHALATION RT-BID 09/01/18 [History] Metoprolol Succinate [Toprol XL] 200 mg PO QAM 09/01/18 [History] Metoprolol Succinate [Toprol Xl] 100 mg PO BID@1200,1900 09/01/18 [History] Docusate [Colace] 100 mg PO BID 10/11/18 [History] Lisinopril [Zestril] 10 mg PO DAILY 03/03/19 [History] buPROPion HCL [Wellbutrin XL] 300 mg PO DAILY 03/03/19 [History] metroNIDAZOLE [Metrogel 1%] 1 applic TOPICAL DAILY 03/03/19 [History] Aspirin 81 mg PO DAILY chew 03/05/19 [Rx] Furosemide [Lasix] 60 mg PO DAILY #50 tablet 03/05/19 [Rx] clonazePAM 0.5 mg PO TID 03/26/19 [History] Follow up Appointment(s)/Referral(s): Farrukh eSe MD [STAFF PHYSICIAN] - 04/09/19 9:30 am (Follow up in the office for a Site Check with Dr. See as scheduled for you) Patient Instructions/Handouts: Electrophysiology Study (DC) Activity/Diet/Wound Care/Special Instructions: Post EP study - Ablation instructions 1. Keep access sites dry for 2 days. 2. No heavy lifting or straining for 2 days. 3. Avoid bending the hips repeatedly for 2 days. 4. You may go up and down stairs slowly Call if the following is noted 1. Bleeding, increasing swelling or pain at the access sites. 2. Increasing chest discomfort, especially upon taking a deep breath. 3. Increasing shortness of breath, at rest or with exertion. 4. Undue cough / phlegm 5. Difficulty or pain while swallowing. 6. Pain or change in color in the extremities. 7. Fever, chills, rigors. 8. Increasing headache or neurologic symptoms. 9. Dizziness, fainting, palpitations Stop Cardizem, continue all other cardiac medications as previously prescribed Discharge Disposition: HOME SELF-CARE
== END 2019-03-29 11:30 | disposition home or self-care (01) ==
LOC: CATHEP 10:34 → 1SOBS 15:42 → CATHEP 03-29 11:30
PROVIDERS: ATTEND Internal Medicine Clinical Cardiac Electrophysiology
DX: I48.0 Paroxysmal atrial fibrillation (principal); I47.1 Supraventricular tachycardia; I42.8 Other cardiomyopathies; Z79.01 Long term (current) use of anticoagulants; Z79.82 Long term (current) use of aspirin; Z79.51 Long term (current) use of inhaled steroids; Z79.899 Other long term (current) drug therapy; I10 Essential (primary) hypertension; E78.5 Hyperlipidemia, unspecified; I44.7 Left bundle-branch block, unspecified; Z87.891 Personal history of nicotine dependence; Z95.810 Presence of automatic (implantable) cardiac defibrillator
CPT/HCPCS: 93653; 94640 ×2; C1894; C1769 ×2; C1730; C1893; C1732; J2250; J0461; J0690; J2001; J3010; J1644; J2704; 93284; 93642; 93650

== ENCOUNTER 2020-04-06 09:58 | Day surgery (SDC) | payer MEDICARE ==
[2020-04-02 10:19] VITALS: BMI 32.8
[~2020-04-06 09:58] MED LIST changes: -LIDOCAINE 1% 20 ML VIAL (10MG/ML) FOR IV START INTRADERMA PRN; -MIDAZOLAM 2 MG/2 ML VIAL IV PRN; +SODIUM CHLORIDE 0.9% 1,000 ML IV SCH; -fentaNYL (PF) 50 MCG/ML 2 ML AMP IV PRN
[2020-04-06 10:29] VITALS: RESP 18; TEMP 97.9
[2020-04-06] MEDS ORDERED: RIVAROXABAN 20 MG TAB PO STA (10:35)
[2020-04-06] MEDS ORDERED: lisinopriL 10 MG TAB PO STA (10:36)
[2020-04-06 10:55] LABS: Calcium 9.5 mg/dL (8.4-10.2); Potassium 4.7 mmol/L (3.5-5.1)
[2020-04-06] MEDS ORDERED: fentaNYL (PF) 50 MCG/ML 2 ML AMP ONE (12:08)
[2020-04-06] MEDS ORDERED: IV FLUID CONTINUATION 450 ML IV ONE (12:08)
[2020-04-06] MEDS ORDERED: MIDAZOLAM 2 MG/2 ML VIAL ONE (12:08)
[2020-04-06] MEDS ORDERED: PROPOFOL 10 MG/ML 20 ML VIAL IV ONE (12:08)
--- NOTE | 2020-04-06 12:55 | P.EPPROC ---
- EP Procedure Note Electrophysiology Procedure Note: Diagnosis Persistent atrial fibrillation, organized, atrial cycle length 260 ms Nonischemic cardiomyopathy Frequent PVCs Congestive heart failure class II Procedure Electrical cardioversion, conscious sedation Details Successful electrical cardioversion with 360 J biphasic shock to sinus rhythm Brief recurrence of atrial tachycardia nonsustained but he reverted back to sinus rhythm Plan Observe [id number] and energy level and exercise capacity while in normal rhythm. I discussed this with his Continue xarelto Continue cardio myopathy medications Follow-up in the office in 3-4 weeks along with device check
[2020-04-06 14:24] VITALS: BP 106/75; PULSE 72
== END 2020-04-06 14:05 | disposition home or self-care (01) ==
LOC: CATHEP 09:58
PROVIDERS: ATTEND Internal Medicine Clinical Cardiac Electrophysiology
DX: I48.19 Other persistent atrial fibrillation (principal); I42.8 Other cardiomyopathies; I49.3 Ventricular premature depolarization; E78.5 Hyperlipidemia, unspecified; J44.9 Chronic obstructive pulmonary disease, unspecified; I47.2 Ventricular tachycardia; I20.9 Angina pectoris, unspecified; I11.0 Hypertensive heart disease with heart failure; I50.22 Chronic systolic (congestive) heart failure; I44.7 Left bundle-branch block, unspecified; K21.9 Gastro-esophageal reflux disease without esophagitis; L71.9 Rosacea, unspecified; Z95.810 Presence of automatic (implantable) cardiac defibrillator; Z87.891 Personal history of nicotine dependence; Z79.01 Long term (current) use of anticoagulants; Z79.82 Long term (current) use of aspirin; Z79.51 Long term (current) use of inhaled steroids; Z79.899 Other long term (current) drug therapy; Z91.09 Other allergy status, other than to drugs and biological substances
CPT/HCPCS: 92960; 80048; 84443; J2250; J3010; J2704

== ENCOUNTER → 2021-09-02 | Outpatient (CLI) | payer MEDICARE ==
[2021-09-02 14:12] LABS: African American GFR (CKD) 75 (>60 ml/min/1.73 sqM); Anion Gap 7 mmol/L; Blood Urea Nitrogen 15 mg/dL (9-20); Carbon Dioxide 30 mmol/L (22-30); Chloride 101 mmol/L (98-107); Glucose 88 mg/dL (74-99); Non-African American GFR(CKD) 65 (>60 ml/min/1.73 sqM); Sodium 138 mmol/L (137-145)
[2021-09-02 14:13] LABS: Potassium 5.3 mmol/L (3.5-5.1)
== END | disposition home or self-care (01) ==
LOC: LABWHC1 13:30
PROVIDERS: ATTEND Nurse Practitioner Adult Health
DX: I10 Essential (primary) hypertension (principal)
CPT/HCPCS: 36415; 80048; 83735

== ENCOUNTER → 2021-09-02 | Outpatient (CLI) | payer MEDICARE | END | disposition home or self-care (01) | LOC: LABWHC1 13:11 | PROVIDERS: ATTEND Internal Medicine Clinical Cardiac Electrophysiology | DX: Z53.9 Procedure and treatment not carried out, unspecified reason (principal) ==

== ENCOUNTER 2023-08-23 09:41 | Day surgery (SDC) | payer MEDICARE ==
[2023-08-21 16:26] VITALS: BMI 31.4
[2023-08-23] MEDS: SODIUM CHLORIDE 0.9% 1,000 ML IV SCH (10:05)
[2023-08-23 10:13] VITALS: RESP 18; TEMP 97.8
[2023-08-23 10:16] LABS: Basophils # (A) 0.1 k/uL (0-0.2); Basophils % (A) 1 %; Eosinophils # (A) 0.5 k/uL (0-0.7); Eosinophils % (A) 5 %; HCT 52.1 % (39.0-53.0); HGB 17.1 gm/dL (13.0-17.5); Lymphocytes # (A) 1.4 k/uL (1.0-4.8); Lymphocytes % (A) 14 %; MCH 30.7 pg (25.0-35.0); MCHC 32.7 g/dL (31.0-37.0); MCV 93.9 fL (80.0-100.0); Mean Platelet Volume 8.3; Monocytes # (A) 0.8 k/uL (0-1.0); Monocytes % (A) 8 %; Neutrophils # (A) 6.9 k/uL (1.3-7.7); Neutrophils % (A) 70 %; Platelet Count 303 k/uL (150-450); RBC 5.55 m/uL (4.30-5.90); RDW 12.8 % (11.5-15.5); WBC 9.9 k/uL (3.8-10.6)
[2023-08-23 10:27] LABS: African American GFR (CKD) 79 (>60 ml/min/1.73 sqM); Anion Gap 7 mmol/L; Blood Urea Nitrogen 15 mg/dL (9-20); Calcium 9.5 mg/dL (8.4-10.2); Carbon Dioxide 31 mmol/L (22-30); Chloride 101 mmol/L (98-107); Glucose 113 mg/dL (74-99); Non-African American GFR(CKD) 68 (>60 ml/min/1.73 sqM); Potassium 4.7 mmol/L (3.5-5.1); Sodium 139 mmol/L (137-145)
[2023-08-23] MEDS ORDERED: FUROSEMIDE 10 MG/ML 2 ML VIAL ONE (11:42)
[2023-08-23] MEDS ORDERED: PROPOFOL 10 MG/ML 20 ML VIAL IV ONE (11:42)
[2023-08-23] MEDS ORDERED: FUROSEMIDE 10 MG/ML 4 ML VIAL ONE (12:06)
--- NOTE | 2023-08-23 12:19 | P.EPPROC ---
- EP Procedure Note Electrophysiology Procedure Note: Diagnosis Increasing RV bipolar thresholds and impedances Status post biventricular ICD implantation many years back No noise no inappropriate shocks Final diagnosis Increasing RV bipolar thresholds and impedances In the integrated bipolar mode threshold and impedances are in the normal range and do not show a rise, consistent with a possible ring electrode fracture/issue Malfunction of ring electrode of the ICD lead 19 months to REGULATORY ADMINISTRATOR Successful DFT with a 20 J shock, 10 J shock failed Plan Add SGLT2 inhibitors to current regimen Details Patient has a Medtronic biventricular ICD that was interrogated The device was reinterrogated. RV lead interrogation: In the bipolar mode - no R waves noted, thresholds 1.5 V at point 4 ms, impedance 1254 ohms Integrated bipolar mode R waves are greater than 20 mV, 0.5 V at point 4 ms threshold, impedance in the integrated bipolar mode 418 ohms P waves 1.5 mV Atrial threshold 0.5 V at point 4 ms atrial pacing impedance 456 ohms LV impedance 665 ohms, thresholds 1.5 V at point 4 ms Defibrillation level testing VF induced Appropriately detected A 10 J shock failed Subsequently 20 J shock was successful Charge time 4.5 seconds impedance 90 ohms. Dropouts noted in the second phase during detection for 20 J charge up Successful defibrillation to paced rhythm
--- NOTE | 2023-08-23 12:24 | P.EPPROC ---
- EP Procedure Note Electrophysiology Procedure Note: Cinefluoroscopy of the leads Atrial RV and LV leads in stable position No fractures or breaks noted especially in the RV lead
[2023-08-23 13:07] VITALS: BP 144/65; PULSE 74
== END 2023-08-23 13:12 | disposition home or self-care (01) ==
LOC: CATHEP 09:41
PROVIDERS: ATTEND Internal Medicine Clinical Cardiac Electrophysiology
DX: I48.19 Other persistent atrial fibrillation (principal); I25.10 Atherosclerotic heart disease of native coronary artery without angina pectoris; I11.0 Hypertensive heart disease with heart failure; I50.9 Heart failure, unspecified; E78.5 Hyperlipidemia, unspecified; I47.20 Ventricular tachycardia, unspecified; I49.3 Ventricular premature depolarization; F17.210 Nicotine dependence, cigarettes, uncomplicated; Z79.82 Long term (current) use of aspirin; Z79.899 Other long term (current) drug therapy
CPT/HCPCS: 93642; 80048; 85025; J1940; J2704

== ENCOUNTER 2024-09-25 18:54 | Emergency (ER) | payer MEDICARE ==
[2024-09-25 19:03] VITALS: TEMP 98.1
--- NOTE | 2024-09-25 19:59 | ED ---
Fall HPI - General Chief Complaint: Fall Stated Complaint: Fall-Back Injury Time Seen by Provider: 09/25/24 19:10 Source: patient, family, RN notes reviewed Mode of arrival: ambulatory Limitations: no limitations - History of Present Illness Initial Comments: 73-year-old male presented the ER for evaluation of a fall. Patient was attempting to move his back deck patio furniture off of the porch and attempted to clean the deck. He states there are 2 steps leading up to the deck and while carrying a chair he accidentally missed the bottom step causing him to fall landing on his left elbow and left knee. He denies head injury or loss of consciousness. He does take Xarelto as he has a cardiac defibrillator. who witnessed events denies head injury. Patient states since incident he has been experiencing lumbar back pain. There is no radiation of this pain. He has taken 2 extra strength Tylenol without relief of pain. He denies any bowel or bladder incontinence/retention, fevers, saddle paresthesias or history of IV drug abuse. Patient has been able to ambulate. Patient also notes wounds to her left knee and left elbow. Tetanus is up-to-date. No pain with active ROM or paresthesias to bilateral upper and lower extremities. Denies any dizziness, lightheadedness, chest pain or shortness of breath prior to fall. No other complaints. - Related Data Home Medications Medication Instructions Recorded Confirmed Cholecalciferol [Vitamin D3 (25 1,000 unit PO TID 02/17/16 08/23/23 Mcg = 1000 Iu)] Mexiletine [Mexitil] 150 mg PO TID-W/MEALS 02/17/16 08/23/23 Rivaroxaban [Xarelto] 20 mg PO W/SUPPER 11/28/17 08/23/23 Metoprolol Succinate [Toprol XL] 200 mg PO QAM 09/01/18 08/23/23 buPROPion HCL [Wellbutrin XL] 300 mg PO DAILY 03/03/19 08/23/23 clonazePAM 0.5 mg PO BID 03/26/19 08/23/23 Albuterol Sulfate [Proventil Hfa] 1 puff INHALATION Q4-6H PRN 08/21/23 08/23/23 Fluticasone Propion/Salmeterol 1 inhalation PO BID 08/21/23 08/23/23 [Wixela 250-50 Inhub] Furosemide [Lasix] 40 mg PO DAILY 08/21/23 08/23/23 Metoprolol Succinate [Toprol XL] 100 mg PO BID@1200,1900 08/21/23 08/23/23 Rosuvastatin [Crestor] 20 mg PO DAILY 08/21/23 08/23/23 Sacubitril/Valsartan [Entresto 49 1 each PO BID 08/21/23 08/23/23 mg-51 mg Tablet] Spironolactone 12.5 mg PO DAILY 08/21/23 08/23/23 Previous Rx's Medication Instructions Recorded Aspirin 81 mg PO DAILY chew 03/05/19 Dapagliflozin Propanediol [Farxiga] 10 mg PO DAILY #90 tablet 08/23/23 Cyclobenzaprine [Flexeril] 5 mg PO HS PRN #15 tab 09/25/24 Lidocaine 5% Patch [Lidoderm 5% 1 patch TOPICAL DAILY #30 patch 09/25/24 Patch] Allergies Allergy/AdvReac Type Severity Reaction Status Date / Time adhesive Allergy Rash/Hives Verified 09/25/24 19:03 Review of Systems ROS Statement: Those systems with pertinent positive or pertinent negative responses have been documented in the HPI. ROS Other: All systems not noted in ROS Statement are negative. Past Medical History Past Medical History: Atrial Fibrillation, Chest Pain / Angina, Heart Failure, COPD, Hearing Disorder / Deafness, Hyperlipidemia, Hypertension, Osteoarthritis (OA), Skin Disorder Additional Past Medical History / Comment(s): See Cardiology H&P. Hx Bronchitis. ROSACEA. Bilateral hearing aid use. History of Any Multi-Drug Resistant Organisms: None Reported Past Surgical History: AICD, Cardiac Ablation, Tonsillectomy Additional Past Surgical History / Comment(s): Cardiac Ablation X5, wrist fracture repair, colonoscopy, bilateral cataracts removed. Past Anesthesia/Blood Transfusion Reactions: No Reported Reaction Type of Cardiac Device: AICD Device Placement Date:: 06/18/2012, 06/2018 Past Psychological History: Anxiety, Depression Smoking Status: Former smoker Past Alcohol Use History: None Reported Past Drug Use History: None Reported - Past Family History Father Family Medical History: Cancer Additional Family Medical History / Comment(s): prostate,colon Mother Family Medical History: Cancer Additional Family Medical History / Comment(s): Colon CA Sister(s) Family Medical History: Cancer Additional Family Medical History / Comment(s): Lung General Exam Limitations: no limitations General appearance: alert, in no apparent distress Head exam: Present: atraumatic, normocephalic, normal inspection Eye exam: Present: normal appearance, PERRL, EOMI. Absent: scleral icterus, conjunctival injection, periorbital swelling Respiratory exam: Present: normal lung sounds bilaterally. Absent: respiratory distress, wheezes, rales, rhonchi, stridor Cardiovascular Exam: Present: regular rate, normal rhythm, normal heart sounds. Absent: systolic murmur, diastolic murmur, rubs, gallop, clicks GI/Abdominal exam: Present: soft, normal bowel sounds. Absent: distended, tenderness, guarding, rebound, rigid Extremities exam: Present: normal inspection, full ROM, normal capillary refill (2+ bilateral DP and radial pulses) Back exam: Present: full ROM, tenderness (Lumbar vertebrae and paraspinal muscles. No skin changes. Negative straight leg raise bilaterally.) Neurological exam: Present: alert, oriented X3, CN II-XII intact Skin exam: Present: warm, dry, normal color, abrasion (Left knee), other (Skin tear left elbow) Course Vital Signs 09/25/24 09/25/24 19:00 21:38 Temperature 98.1 F 98.1 F Pulse Rate 61 70 Respiratory 22 18 Rate Blood Pressure 108/69 110/79 O2 Sat by Pulse 95 98 Oximetry Medical Decision Making - Medical Decision Making Was pt. sent in by a medical professional or institution (, PA, UNIT CONTROL CLERK, urgent care, hospital, or half-way...) When possible be specific @ -No Did you speak to anyone other than the patient for history (EMS, parent, family, police, friend...)? What history was obtained from this source @ -Patient's , at bedside, aiding in HPI and past medical history. Did you review nursing and triage notes (agree or disagree)? Why? @ -I reviewed and agree with nursing and triage notes Were old charts reviewed (outside hosp., previous admission, EMS record, old EKG, old radiological studies, urgent care reports/EKG's, half-way records)? Report findings @ -No old charts were reviewed Differential Diagnosis (chest pain, altered mental status, abdominal pain women, abdominal pain men, vaginal bleeding, weakness, fever, dyspnea, syncope, headache, dizziness, GI bleed, back pain, seizure, CVA, palpatations, mental health, musculoskeletal)? @ -Fracture, dislocation, contusion, hematoma, intracranial hemorrhage, concussion, abrasion, laceration this list does not like to be all-inclusive EKG interpreted by me (3pts min.). @ -[None done X-rays interpreted by me (1pt min.). @ -Lumbar spine x-rays interpreted me negative for acute fractures or dislocations. Degenerative disc disease. CT interpreted by me (1pt min.). @ -None done U/S interpreted by me (1pt. min.). @ -None done What testing was considered but not performed or refused? (CT, X-rays, U/S, labs)? Why? @ -None What meds were considered but not given or refused? Why? @ -Tylenol considered but not given as patient took 2 extra take Tylenol prior to arrival Did you discuss the management of the patient with other professionals (professionals i.e. , PA, UNIT CONTROL CLERK, lab, RT, psych nurse, social and human services assistant, sourcing intern, teacher, press officer, case briefer)? Give summary @ -No Was smoking cessation discussed for >3mins.? @ -No Was critical care preformed (if so, how long)? @ -No Were there social determinants of health that impacted care today? How? (Homelessness, low income, unemployed, alcoholism, drug addiction, transportation, low edu. Level, literacy, decrease access to med. care, prison, rehab)? @ -No Was there de-escalation of care discussed even if they declined (Discuss DNR or withdrawal of care, Hospice)? DNR status @ -No What co-morbidities impacted this encounter? (DM, HTN, Smoking, COPD, CAD, Ca ncer, CVA, ARF, Chemo, Hep., AIDS, mental health diagnosis, sleep apnea, morbid obesity)? @ -Patient is on Xarelto Was patient admitted / discharged? Hospital course, mention meds given and route, prescriptions, significant lab abnormalities, going to OR and other pertinent info. @ -Discharge. 73-year-old male presented the ER for evaluation of fall. Vital stable. Patient and deny head injury. Patient in no signs of acute distress nontoxic-appearing. Neurovascularly intact. Full active range of motion of all extremities. No red flag back pain symptoms that he could have cauda equina syndrome. There is a skin tear noted to left elbow and abrasion to left knee. Patient is up-to-date on tetanus. Skin tear bandaged by RN. Armando maging of the lumbar spine negative for acute process. Patient provided symptomatic treatment with IM Norflex and lidocaine patch. Upon reevaluation, patient resting company in exam room no signs of acute distress. Results discussed with patient, all questions answered. He is reporting improvement of discomfort. Patient will be discharged stable condition with follow-up PCP. Lidocaine patches and Flexeril prescribed. I advised continue use of [id number] Tylenol for pain control. Appropriate return parameters and follow-up discussed. Patient verbally expressed understanding agreement the care plan. Case discussed with ED attending, Dr. Montanez. Undiagnosed new problem with uncertain prognosis? @ -No Drug Therapy requiring intensive monitoring for toxicity (Heparin, Nitro, Insulin, Cardizem)? @ -No Were any procedures done? @ -No Diagnosis/symptom? @ -Fall/skin tear Acute, or Chronic, or Acute on Chronic? @ -Acute Uncomplicated (without systemic symptoms) or Complicated (systemic symptoms)? @ -Uncomplicated Side effects of treatment? @ -No Exacerbation, Progression, or Severe Exacerbation? @ -No Poses a threat to life or bodily function? How? (Chest pain, [place], NM, pneumonia, PE, COPD, DKA, ARF, appy, cholecystitis, CVA, Diverticulitis, Homicidal, Suicidal, threat to staff... and all critical care pts) @ -No - Radiology Data Radiology results: report reviewed, image reviewed Disposition Clinical Impression: Fall, Skin tear Disposition: HOME SELF-CARE Condition: Stable Instructions (If sedation given, give patient instructions): Fall Prevention for Older Adults (ED) Additional Instructions: Follow-up with PCP you may take [id number] Tylenol for pain control. Be aware Flexeril may make you drowsy do not operate heavy machinery while taking this medication. Return to the ER for new or worsening concerns Prescriptions: Cyclobenzaprine [Flexeril] 5 mg PO HS PRN #15 tab PRN Reason: Muscle Pain Lidocaine 5% Patch [Lidoderm 5% Patch] 1 patch TOPICAL DAILY #30 patch Is patient prescribed a controlled substance at d/c from ED?: No Referrals: None,Stated [Primary Care Provider] - 1-2 days Forms: PH Area PCPs Time of Disposition: 21:35
[2024-09-25] MEDS: ORPHENADRINE 30 MG/ML 2 ML VIAL IM STA (20:05)
[2024-09-25] MEDS: LIDOCAINE 4% PATCH TOPICAL ONE (20:06)
--- NOTE | 2024-09-25 21:15 | XR ---
EXAMINATION TYPE: XR lumbar spine 2 or 3V DATE OF EXAM: 09/25/2024 8:34 PM COMPARISON: None CLINICAL INDICATION: Male, 73 years old with history of fall; PHH, pain TECHNIQUE: XR lumbar spine 2 or 3V - Frontal, lateral and coned in L5-S1 lateral views of the spine. FINDINGS: No evidence of any acute osseous pathology. No evidence of loss of vertebral body height i s seen. There is normal alignment of the lumbar vertebral bodies. Scattered disc space narrowing wors e at L4-L5 and L5-S1. Multilevel marginal osteophyte formation throughout the visualized spine. There is facet joint arthropathy throughout the spine. Scattered at least mild neural foraminal stenosis. At this course of the arterial vasculature. IMPRESSION: 1. No acute fracture. 2. Moderate to severe multilevel disc degeneration. [facility], , 09/25/2024 9:13 PM
[2024-09-25 21:39] VITALS: BP 110/79; PULSE 70; RESP 18
== END 2024-09-25 21:43 | disposition home or self-care (01) ==
LOC: EC 18:54
DX: S51.812A Laceration without foreign body of left forearm, initial encounter (principal); Z87.891 Personal history of nicotine dependence; Z91.09 Other allergy status, other than to drugs and biological substances; W19.XXXA Unspecified fall, initial encounter
CPT/HCPCS: 72100; 99283; 96372; J2360